=== PATIENT | female | born 1980 | race Caucasian/White ===

== ENCOUNTER 2017-01-28 17:23 | Inpatient (IN) | payer MEDICAID ==
[~2017-01-28] VITALS: Ht 167.6 cm; Wt 75.6 kg
[~2017-01-28 17:23] MED LIST: AMOX500T PO; CALC600T5 PO; FERR325C PO; FOLI0.8C PO; PREN1TAB62 PO
[2017-01-28] MEDS ORDERED: ONDANSETRON 4 MG INJ IV STA (19:16)
[2017-01-28] MEDS ORDERED: SOD CHLORIDE 0.9% 1,000 ML IV STA (19:16)
[2017-01-28] MEDS ORDERED: HYDROmorphONE 1 MG/ML SYG IV STA (19:16)
[2017-01-28 19:35] LABS: BASOPHILS % 0.4 % (0.0-2.0); EOSINOPHILS # 0.1 10^3/ul (0.0-0.5); EOSINOPHILS % 1.3 % (0.0-7.0); HEMATOCRIT 36.1 % (37.0-47.0); HEMOGLOBIN 11.8 g/dl (12.0-16.0); LYMPHOCYTES # 2.3 10^3/ul (0.8-2.9); LYMPHOCYTES % 23.3 % (15.0-51.0); MEAN CORPUSCULAR HEMOGLOBIN 27.5 pg (29.0-33.0); MEAN CORPUSCULAR HGB CONC 32.7 g/dl (32.0-37.0); MEAN CORPUSCULAR VOLUME 84.1 fl (82.0-101.0); MEAN PLATELET VOLUME 8.9 fl (7.4-10.4); MONOCYTE # 0.6 10^3/ul (0.3-0.9); MONOCYTES % 6.1 % (0.0-11.0); NEUTROPHIL # 6.7 10^3/ul (1.6-7.5); NEUTROPHILS % 68.4 % (39.0-77.0); PLATELET COUNT 399 10^3/UL (140-415); RED BLOOD COUNT 4.29 10^6/ul (4.20-5.40); RED CELL DISTRIBUTION WIDTH 13.6 % (11.5-14.5); WHITE BLOOD COUNT 9.8 10^3/ul (4.8-10.8)
[2017-01-28 19:42] LABS: ALBUMIN 4.2 g/dl (3.3-4.9); ALBUMIN/GLOBULIN RATIO 1.13; BILIRUBIN,INDIRECT 0.2 mg/dl (0-1.1); BILIRUBIN,TOTAL 0.2 mg/dl (0.2-1.3); CALCIUM 9.4 mg/dl (8.4-10.2); CREATININE 0.61 mg/dl (0.44-1.00); POTASSIUM 3.6 mmol/L (3.5-5.1); TOTAL PROTEIN 7.9 g/dl (6.1-8.1)
--- NOTE | 2017-01-28 20:36 | RADRPT ---
PROCEDURE: US right upper quadrant CLINICAL INDICATION: Abdominal pain TECHNIQUE: Multiple real-time images were acquired of the patient's right upper abdomen utilizing a high resolution transducer. COMPARISON: Ultrasound 06/15/2015 FINDINGS: Liver: Normal in size, contour and echogenicity. The maximum dimension estimated at 14.7 cm. No ma ss or ductal dilatation is present. There is normal blood flow within the patent main portal vein . Gallbladder: Multiple mobile echogenic foci with distal acoustic shadowing are present. . gallblad bigg wall thickening is present estimated at 4.1 mm. There is no evidence of pericholecystic fluid. N o sonographic Laird's sign is reported. Common bile duct: Dilated; 7.7 mm. There is no evidence for choledocholithiasis. Right Kidney: Normal; maximum length measured at approximately 11.1 cm. Pancreas: Visualized portions are normal. The tail is partially obscured by bowel gas. RPTAT:HJJR IMPRESSION: Cholelithiasis with interval development of gallbladder wall thickening and common bile duct dilatat ion compared to the prior study of 06/15/2015 unable to exclude cholecystitis despite the lack of re porting for a sonographic Laird's sign. Physician Mitesh Date Time Electronically viewed and signed by Physician Mitesh on 01/28/2017 20:36 JR/
--- NOTE | 2017-01-28 20:41 | RADRPT ---
PROCEDURE: US Pelvis. CLINICAL INDICATION: Pelvic and abdominal pain TECHNIQUE: Multiple sonographic images of the pelvis were obtained utilizing a transabdominal and endovaginal technique. The images were reviewed on a PACS workstation. COMPARISON: 01/25/2016 FINDINGS: Uterus: Normal in size, contour and echogenicity with no evidence for myometrial masses. Size is est imated at 8.6 x 6.3 x 6 cm. Cervix: No abnormalities of significance are seen. Endometrium: Ovoid anechoic structure believed to be a gestational sac is noted; 3.5 mm. This corre sponds to a gestational age of 5 weeks. No pole or yolk sac is visible however. Right ovary / adnexa: Normal in size estimated at 3.3 x 2.7 x 1.4 cm. No evidence for solid masses , normal blood flow on Doppler interrogation. Corpus luteum cyst of approximately 2.2 x 1.6 cm is no felipa Left ovary/adnexa: Size estimated at 3.3 x 1.4 x 2.7 cm (presumably incorrectly labeled on the image s as right ovary). Normal blood flow on Doppler interrogation. No evidence of adnexal mass or free f luid. Cul-de-sac: No evidence of free fluid. RPTAT:HJJR IMPRESSION: 1. Anechoic structure within the endometrial cavity probably a gestational sac corresponding to an a ge of 5 weeks but without pole or yolk sac. As viability is therefore indeterminate, follow-up evaluation with serial serum beta HCG correlation and ultrasound is recommended. 2. Incidental corpus luteum cyst of the right ovary. Physician Mitesh Date Time Electronically viewed and signed by Physician Mitesh on 01/28/2017 20:41 /
--- NOTE | 2017-01-28 22:43 | ERA ---
ER Documentation Chief Complaint Date/Time DATE: 01/28/17 TIME: 22:35 Chief Complaint RUQ PAIN, 5WKS lmp12/24/16, was seen @another hospital & left, HPI This is a 36-year-old female who states she is 4-5 weeks and left outside facility because they told her she had something wrong with her stomach and maybe she had gallstones. The told her that they were going to have to take the baby in order to perform surgery. The patient left for this reason because she did not want to have her baby taken away the expense of the surgery so they came here for evaluation. The patient states she has had pain in the right upper quadrant after eating for several months now and gotten worse. She says that the pain is crampy in the epigastric region and radiates to the back. She has nausea no vomiting no diarrhea no fever. She is no vaginal bleeding no pelvic pain ROS All systems reviewed and are negative except as per history of present illness. Medications Home Meds Reported Medications Amoxicillin Trihydrate (Amoxicillin) 500 Mg Tablet, 500 MG PO Q8, #30 TAB 01/25/16 Calcium Carbonate (CALCIUM) 600 Mg Tablet, 600 MG PO DAILY, TAB 01/25/16 Folic Acid (Folic Acid) 0.8 Mg Capsule, 0.8 MG PO DAILY, CAP 01/25/16 Ferrous Sulfate (Iron) 325 Mg Capsule.er, 325 MG PO DAILY, CAP 01/25/16 Vit-Iron Fumarate-FA ( Vitamin Tablet) 1 Each Tablet, 1 TAB PO DAILY, TAB 12/20/15 Allergies Allergies: Coded Allergies: No Known Drug Allergy (Verified Allergy, Unknown, 01/25/16) PMhx/Soc Medical and Surgical Hx: pt denies Medical Hx, pt denies Surgical Hx Hx Alcohol Use: No Hx Substance Use: No Hx Tobacco Use: No Smoking Status: Never smoker FmHx Family History: No coronary disease Physical Exam Vitals Vital Signs Date Time Temp Pulse Resp B/P Pulse Ox O2 Delivery O2 Flow Rate FiO2 01/28/17 19:37 66 15 125/71 100 Room Air 01/28/17 18:44 98.2 69 20 141/75 100 Room Air 01/28/17 17:27 98.2 85 20 121/66 100 Physical Exam Const: Well-developed, well-nourished Head: Atraumatic, normocephalic Eyes: Normal Conjunctiva, PERRLA, EOMI, normal sclera, no nystagmus ENT: Normal External Ears, Nose and Mouth, moist mucus membranes. Neck: Full range of motion. No meningismus, no lymphadenopathy. Resp: Clear to auscultation bilaterally, no wheezing, rhonchi, rales Cardio: Regular rate and rhythm, no murmurs, S1 S2 present Abd: Soft, moderate epigastric tenderness non distended. Normal bowel sounds, no guarding or rebound, no pulsitile abdominal masses or bruits Skin: No petechiae or rashes, no ecchymosis , no maculopapular rash Back: No midline or flank tenderness Ext: No cyanosis, or edema, FROM x 4, normal inspection, neurovascularly intact x 4 Neur: Awake and alert, STR 5/5 x 4, sensation intact x 4, no focal findings, cerebellum intact Psych: Normal Mood and Affect Result Diagram: 01/28/17185401/28/171854 Results 24 hrs Laboratory Tests Test 01/28/17 18:55 White Blood Count 9.810^3/ul Red Blood Count 4.2910^6/ul Hemoglobin 11.8g/dl Hematocrit 36.1% Mean Corpuscular Volume 84.1fl Mean Corpuscular Hemoglobin 27.5pg Mean Corpuscular Hemoglobin Concent 32.7g/dl Red Cell Distribution Width 13.6% Platelet Count 53137^3/UL Mean Platelet Volume 8.9fl Neutrophils % 68.4% Lymphocytes % 23.3% Monocytes % 6.1% Eosinophils % 1.3% Basophils % 0.4% Nucleated Red Blood Cells % 0.0/100WBC Neutrophils # 6.710^3/ul Lymphocytes # 2.310^3/ul Monocytes # 0.610^3/ul Eosinophils # 0.110^3/ul Basophils # 0.010^3/ul Nucleated Red Blood Cells # 0.010^3/ul Sodium Level 139mmol/L Potassium Level 3.6mmol/L Chloride Level 104mmol/L Carbon Dioxide Level 27mmol/L Anion Gap 12 Blood Urea Nitrogen 5mg/dl Creatinine 0.61mg/dl Glucose Level 92mg/dl Calcium Level 9.4mg/dl Total Bilirubin 0.2mg/dl Direct Bilirubin 0.00mg/dl Indirect Bilirubin 0.2mg/dl Aspartate Amino Transf (AST/SGOT) 266IU/L Alanine Aminotransferase (ALT/SGPT) 381IU/L Alkaline Phosphatase 277IU/L Total Protein 7.9g/dl Albumin 4.2g/dl Globulin 3.70g/dl Albumin/Globulin Ratio 1.13 Lipase 86U/L Beta HCG, Quantitative 1687.0mIU/ml Current Medications Medications (Trade) Dose Ordered Sig/Brisa Route PRN Reason Start Time Stop Time Status Last Admin Dose Admin Sodium Chloride (NS) 1,000 ml @ 1,000 mls/hr Q1H STAT IV 01/28/17 19:16 01/28/17 20:15 DC 01/28/17 19:26 Hydromorphone HCl (Dilaudid) 0.5 mg ONCE STAT IV 01/28/17 19:16 01/28/17 19:19 DC 01/28/17 19:27 Ondansetron HCl (Zofran Inj) 4 mg ONCE STAT IV 01/28/17 19:16 01/28/17 19:19 DC 01/28/17 19:27 Procedures/MDM PROCEDURE: US right upper quadrant CLINICAL INDICATION: Abdominal pain TECHNIQUE: Multiple real-time images were acquired of the patient's right upper abdomen utilizing a high resolution transducer. COMPARISON: Ultrasound 06/15/2015 FINDINGS: Liver: Normal in size, contour and echogenicity. The maximum dimension estimated at 14.7 cm. No mass or ductal dilatation is present. There is normal blood flow within the patent main portal vein . Gallbladder: Multiple mobile echogenic foci with distal acoustic shadowing are present. . gallbladder wall thickening is present estimated at 4.1 mm. There is no evidence of pericholecystic fluid. No sonographic Laird's sign is reported. Common bile duct: Dilated; 7.7 mm. There is no evidence for choledocholithiasis. Right Kidney: Normal; maximum length measured at approximately 11.1 cm. Pancreas: Visualized portions are normal. The tail is partially obscured by bowel gas. RPTAT:HJJR IMPRESSION: Cholelithiasis with interval development of gallbladder wall thickening and common bile duct dilatation compared to the prior study of 06/15/2015 unable to exclude cholecystitis despite the lack of reporting for a sonographic Laird's sign. Physician Mitesh Date Time Electronically viewed and signed by Physician Mitesh on 01/28/2017 20:36 / CC: CLARIBEL KEBEDE DO PROCEDURE: US Pelvis. CLINICAL INDICATION: Pelvic and abdominal pain TECHNIQUE: Multiple sonographic images of the pelvis were obtained utilizing a transabdominal and endovaginal technique. The images were reviewed on a PACS workstation. COMPARISON: 01/25/2016 FINDINGS: Uterus: Normal in size, contour and echogenicity with no evidence for myometrial masses. Size is estimated at 8.6 x 6.3 x 6 cm. Cervix: No abnormalities of significance are seen. Endometrium: Ovoid anechoic structure believed to be a gestational sac is noted ; 3.5 mm. This corresponds to a gestational age of 5 weeks. No pole or yolk sac is visible however. Right ovary / adnexa: Normal in size estimated at 3.3 x 2.7 x 1.4 cm. No evidence for solid masses, normal blood flow on Doppler interrogation. Corpus luteum cyst of approximately 2.2 x 1.6 cm is noted Left ovary/adnexa: Size estimated at 3.3 x 1.4 x 2.7 cm (presumably incorrectly labeled on the images as right ovary). Normal blood flow on Doppler interrogation. No evidence of adnexal mass or free fluid. Cul-de-sac: No evidence of free fluid. RPTAT:HJJR IMPRESSION: 1. Anechoic structure within the endometrial cavity probably a gestational sac corresponding to an age of 5 weeks but without pole or yolk sac. As viability is therefore indeterminate, follow-up evaluation with serial serum beta HCG correlation and ultrasound is recommended. 2. Incidental corpus luteum cyst of the right ovary. Physician Mitesh Date Time Electronically viewed and signed by Physician Mitesh on 01/28/2017 20:41 JR/ CC: CLARIBEL KEBEDE DO Patient has elevated liver function tests with thickened wall and common bile duct is dilated. She will be admitted for MRCP. I spoke with Dr. Phillips and I did speak with Dr. Rodriguez of surgery Departure Diagnosis: Primary Impression: Cholelithiasis Qualified Code: K80.01 - Calculus of gallbladder with acute cholecystitis and obstruction Additional Impression: Elevated liver function tests Condition: Stable CLARIBEL KEBEDE DO Jan 28, 2017 22:43
[2017-01-28] MEDS ORDERED: ERTAPENEM SODIUM 1 GM in SOD CHLORIDE 0.9% 100 ML IVPB ONE (23:00)
[2017-01-29] MEDS ORDERED: SOD CHLORIDE 0.9% 1,000 ML IV SCH
[2017-01-29] MEDS ORDERED: ACETAMINOPHEN 325 MG TAB PO PRN
[2017-01-29 00:44] VITALS: TEMP 98.2
[2017-01-29 01:20] VITALS: Ht 167.6 cm; Wt 75.6 kg
[2017-01-29 01:21] VITALS: BP 120/62; RESP 18
[2017-01-29] MEDS ORDERED: ONDANSETRON 4 MG INJ IV PRN ×2 (02:00)
[2017-01-29] MEDS: FAMOTIDINE 20 MG INJ IV SCH ×3 (02:41→21:13)
[2017-01-29] MEDS: DEXTROSE 5%-0.45% NACL 1,000 ML IV SCH ×3 (02:41→18:18)
--- NOTE | 2017-01-29 04:02 | HP ---
Date/Time of Note Date/Time of Note DATE: 01/29/17 TIME: 03:40 Assessment/Plan VTE Prophylaxis VTE Prophylaxis Intervention: SCD's Lines/Catheters IV Catheter Type (from Nrs): Peripheral IV Assessment/Plan Assessment/Plan 1. Cholelithiasis with probable choledocholithiasis in a pt who is 5 weeks - NPO with IVF - Abx - Awaiting surgical Eval. Note that pt left AMA from an outside hospital after she was told her baby has to be taken out before undergoing surgery 2. Elevated Transaminases/alk phos - see # 1 3. Anemia - check ferritin and iron profile 4. GERD, related to - PPI HPI/ROS Admit Date/Time Admit Date/Time Jan 29, 2017 at 00:01 Hx of Present Illness This is a 36-year-old female who states she is 5 weeks presented to ER c/o abd pain of several months duration. Patient was just admitted at an outside hospital and was told she has Gallstones and that she needs a surgery. She left AMA after she was told the baby has to be taken out in order to perform surgery. MRCP was performed at outside hospital and that is the only record she came with. She also c/o GERD like symptom during her . Reported nausea. Denied chest pain, SOB, fever or chills. In ER, RUQ u/s showed Cholelithiasis with interval development of gallbladder wall thickening and common bile duct dilatation compared to the prior study of 06/15/2015 unable to exclude cholecystitis despite the lack of reporting for a sonographic Laird's sign. Lab shows AST 266, ALT 381, AP 277 and hgb of 11.8. . PMH/Family/Social Past Medical History GERD, related . Social History Smoking Status: Never smoker Exam/Review of Systems Vital Signs Vitals Vital Signs Date Time Temp Pulse Resp B/P Pulse Ox O2 Delivery O2 Flow Rate FiO2 01/29/17 01:21 97.6 68 18 120/62 100 01/29/17 00:44 Room Air Exam Constitutional: alert, oriented, well developed Head: atraumatic, normocephalic Eyes: EOMI, PERRL Respiratory: clear to auscultation, normal air movement Cardiovascular: nl pulses, regular rate and rhythm Gastrointestinal: soft, tender Extremities: normal pulses Labs Result Diagram: 01/28/17 1855 01/28/17 1855 Medications Medications Current Medications Sodium Chloride (NS) 1,000 ml @ 80 mls/hr [id number] IV ; Start 01/29/17 at 00:00 ; Stop 01/29/17 at 12:29 Famotidine (Pepcid Iv) 20 mg BID IV Last administered on 01/29/17 02:41; Admin Dose 20 MG; Start 01/29/17 at 02:00 Morphine Sulfate (morphine) 3 mg Q4H PRN IV PAIN; Start 01/29/17 at 02:00 Ondansetron HCl 4 mg 4 mg Q6H PRN IV NAUSEA AND/OR VOMITING; Start 01/29/17 at 02:00 Dextrose/Sodium Chloride (D5-1/2ns) 1,000 ml @ 100 mls/hr Q10H IV Last administered on 01/29/17 02:41; Admin Dose 100 MLS/HR; Start 01/29/17 at 02:00 BRI BELLO MD Jan 29, 2017 03:55
[2017-01-29 07:33] LABS: BASOPHILS % 0.5 % (0.0-2.0); EOSINOPHILS # 0.2 10^3/ul (0.0-0.5); EOSINOPHILS % 2.5 % (0.0-7.0); HEMATOCRIT 33.7 % (37.0-47.0); HEMOGLOBIN 10.7 g/dl (12.0-16.0); LYMPHOCYTES % 27.1 % (15.0-51.0); MEAN CORPUSCULAR HEMOGLOBIN 26.4 pg (29.0-33.0); MEAN CORPUSCULAR HGB CONC 31.8 g/dl (32.0-37.0); MONOCYTE # 0.5 10^3/ul (0.3-0.9); MONOCYTES % 6.1 % (0.0-11.0); NEUTROPHIL # 4.8 10^3/ul (1.6-7.5); NEUTROPHILS % 63.4 % (39.0-77.0); PLATELET COUNT 329 10^3/UL (140-415); RED BLOOD COUNT 4.06 10^6/ul (4.20-5.40); RED CELL DISTRIBUTION WIDTH 13.7 % (11.5-14.5); WHITE BLOOD COUNT 7.5 10^3/ul (4.8-10.8)
[2017-01-29 07:34] VITALS: BP 117/58; RESP 18
[2017-01-29 08:04] LABS: ALBUMIN 3.6 g/dl (3.3-4.9); ALBUMIN/GLOBULIN RATIO 1.12; BILIRUBIN,INDIRECT 0.1 mg/dl (0-1.1); BILIRUBIN,TOTAL 0.1 mg/dl (0.2-1.3); CALCIUM 8.5 mg/dl (8.4-10.2); CREATININE 0.58 mg/dl (0.44-1.00); POTASSIUM 3.6 mmol/L (3.5-5.1); TOTAL PROTEIN 6.8 g/dl (6.1-8.1)
[2017-01-29] MEDS: PIPER-TAZO 2.25 GM (PMX) 50 ML IVPB SCH ×3 (09:17→18:18)
[2017-01-29 09:24] LABS: FERRITIN 34.2 ng/ml (6.2-137.0)
[2017-01-29] MEDS: morphine 4 MG/ML VIAL IV PRN ×2 (11:33→19:54)
--- NOTE | 2017-01-29 11:51 | PN ---
Date/Time of Note Date/Time of Note DATE: 01/29/17 TIME: 11:48 Assessment/Plan VTE Prophylaxis VTE Prophylaxis Intervention: SCD's Lines/Catheters IV [facility] Type (from [facility] Peripheral IV Assessment/Plan Chief Complaint/Hosp Course Assessment/Plan 1. Cholelithiasis with probable choledocholithiasis in a pt who is 5 weeks - NPO with IVF - Abx - Awaiting surgical and GI Eval. Note that pt left AMA from an outside hospital after she was told her baby has to be taken out before undergoing surgery -MRCP 2. Elevated Transaminases/alk phos - see # 1 3. Anemia - check ferritin and iron profile 4. GERD, related to - PPI Continue monitor patient closely for recommendation management treatments medical course DVT prophylaxis and SCD Problems: Subjective 24 Hr Interval Summary Free Text/Dictation Patient continues to complain of abdominal pain N.p.o. secondary to abdominal pain and upcoming procedure According to patient she has had an MRCP at [facility] (waiting to obtain the result) Denies of any chest pain or shortness of breath Exam/Review of Systems Vital Signs Vitals Vital Signs Date Time Temp Pulse Resp B/P Pulse Ox O2 Delivery O2 Flow Rate FiO2 01/29/17 07:34 98.0 71 18 117/58 99 01/29/17 00:44 Room Air Intake and Output 01/28/17 01/28/17 01/29/17 15:00 23:00 07:00 Intake Total 350 ml Balance 350 ml Exam General: The patient is well-developed, Not in acute distress. HEENT: Atraumatic, normocephalic. The pupils are equal and round . Neck: Supple with full range of motion. Chest: Normal expansion of the thorax during inspiration Lungs: Clear to auscultation bilaterally Heart: Normal S1-S2, Regular rhythm and rate. Abdomen: Soft , mildly tender at epigastric region , nondistended , bowel sounds are present. Extremities: Normal to inspection, no edema no cyanosis Neurologic: Normal mental status,The patient is awake, alert and oriented . Results Result Diagram: 01/29/17 0656 01/29/17 0656 Results 24 hrs Laboratory Tests Test 01/28/17 18:55 01/29/17 06:56 White Blood Count 9.8 7.5 # Red Blood Count 4.29 4.06 L Hemoglobin 11.8 L 10.7 L Hematocrit 36.1 L 33.7 L Mean Corpuscular Volume 84.1 83.0 Mean Corpuscular Hemoglobin 27.5 L 26.4 L Mean Corpuscular Hemoglobin Concent 32.7 31.8 L Red Cell Distribution Width 13.6 13.7 Platelet Count 399 329 Mean Platelet Volume 8.9 # 9.0 Neutrophils % 68.4 63.4 Lymphocytes % 23.3 27.1 Monocytes % 6.1 6.1 Eosinophils % 1.3 2.5 Basophils % 0.4 0.5 Nucleated Red Blood Cells % 0.0 0.0 Neutrophils # 6.7 4.8 Lymphocytes # 2.3 2.0 Monocytes # 0.6 0.5 Eosinophils # 0.1 0.2 Basophils # 0.0 0.0 Nucleated Red Blood Cells # 0.0 0.0 Sodium Level 139 138 Potassium Level 3.6 3.6 Chloride Level 104 106 Carbon Dioxide Level 27 25 Anion Gap 12 11 Blood Urea Nitrogen 5 L 4 L Creatinine 0.61 0.58 Glucose Level 92 98 Calcium Level 9.4 8.5 Total Bilirubin 0.2 0.1 L Direct Bilirubin 0.00 0.00 Indirect Bilirubin 0.2 0.1 Aspartate Amino Transf (AST/SGOT) 266 H 153 H Alanine Aminotransferase (ALT/SGPT) 381 H 284 H Alkaline Phosphatase 277 H 224 H Total Protein 7.9 6.8 # Albumin 4.2 3.6 Globulin 3.70 H 3.20 Albumin/Globulin Ratio 1.13 1.12 Lipase 86 Beta HCG, Quantitative 1687.0 Ferritin 34.2 Medications Medications Current Medications Sodium Chloride (NS) 1,000 ml @ 80 mls/hr [id number] IV ; Start 01/29/17 at 00:00 ; Stop 01/29/17 at 12:29 Famotidine (Pepcid Iv) 20 mg BID IV Last administered on 01/29/17 08:47; Admin Dose 20 MG; Start 01/29/17 at 02:00 Morphine Sulfate (morphine) 3 mg Q4H PRN IV PAIN Last administered on 11:33; Admin Dose 3 MG; Start 01/29/17 at 02:00 Ondansetron HCl 4 mg 4 mg Q6H PRN IV NAUSEA AND/OR VOMITING; Start 01/29/17 at 02:00 Dextrose/Sodium Chloride 1,000 ml @ 100 mls/hr Q10H IV Last administered on 02:41; Admin Dose 100 MLS/HR; Start 01/29/17 at 02:00 Piperacillin Sod/ Tazobactam Sod (Zosyn 2.25gm/ 50ml (Pmx)) 50 ml @ 100 mls/hr Q6 IVPB Last administered on 01/29/17 11:33; Admin Dose 100 MLS/HR; Start at 08:30 CHARLIE BERGMAN MD Jan 29, 2017 11:51
--- NOTE | 2017-01-29 15:32 | CONS ---
Date/Time of Note Date/Time of Note DATE: 01/29/17 TIME: 14:56 Assessment/Plan Assessment/Plan Chief Complaint/Hosp Course 1. Cholelithiasis with poss choledocholithiasis : no fevers, negative murphys; + transaminitis; dilated cbd; pain improving -mrcp pending -npo -ivf -GI eval poss ercp -eventual lap suzette 2. Transaminitis: 2/2 above; improving -as above 3. Abdominal pain: improved -pain management 4. Anemia: no femi bleed noted -monitor and transfuse prn 5. GERD: -ppi Patient seen and examined in collaboration with Dr. Aramis Rodriguez. Thank you. Problems: Consultation Date/Type/Reason Admit Date/Time Jan 29, 2017 at 00:01 Date of Consultation: Jan 29, 2017 Type of Consultation: surgical Reason for Consultation cholelithiasis Referring Provider: BRI BELLO MD Hx of Present Illness Libra Pires is a 36-year-old woman who is 5 weeks , who presented to ER c/o abd pain of several months duration. She recently left AMA after she was told the baby has to be taken out in order to perform the recommended cholecystectomy. MRCP was performed at outside hospital which we are attempting to obtain. She complains of RUQ pain intermittently irrespective of food. She also c/o GERD like symptom as well as intermittent nausea during her . She denies chest pain, SOB, fever or chills. US of gallbladder shows cholelithiasis with interval development of gallbladder wall thickening and common bile duct dilatation compared to the prior study of 06/15/2015. General surgery was called to evaluate. Constitutional: No chills, No febrile Eyes: No visual change ENT: No congestion Respiratory: No cough, No shortness of breath Cardiovascular: No chest pain, No edema, No lightheadedness Gastrointestinal: No diarrhea, No nausea, No pain, No vomiting Genitourinary: No dysuria, No hematuria Musculoskeletal: No back pain Skin: No bruising, No erythema Neurologic: No dizziness, No headache Endocrine: No polyuria Psychological: nl mood/affect Past Medical History Medical History: GERD Past Surgical History Past Surgical Hx: no surgical history Family History Significant Family History: no pertinent family hx Social History Alcohol Use: none Smoking Status: Never smoker Drug Use: none Exam/Review of Systems Vital Signs Vitals Vital Signs Date Time Temp Pulse Resp B/P Pulse Ox O2 Delivery O2 Flow Rate FiO2 01/29/17 07:34 98.0 71 18 117/58 99 01/29/17 00:44 Room Air Intake and Output 01/28/17 01/28/17 01/29/17 15:00 23:00 07:00 Intake Total 350 ml Balance 350 ml Exam Constitutional: alert, oriented Psych: anxiety Head: atraumatic, normocephalic Eyes: nl lids, nl sclera ENMT: mucosa pink and moist, nl nasal mucosa & septum Neck: non-tender, supple, No jvd Respiratory: normal air movement Cardiovascular: nl pulses, regular rate and rhythm, No edema Gastrointestinal: non-tender, other (negative hall's; rotund), soft Genitourinary - Female: nl external genitalia Musculoskeletal: nl extremities to inspection Extremities: normal pulses, No edema Neurological: nl mental status, nl speech, nl strength Skin: No rash or lesions Lymph: nl lymph nodes Results Result Diagram: 01/29/17 0656 01/29/17 0656 Results 24 hrs Laboratory Tests Test 01/28/17 18:55 01/29/17 06:56 White Blood Count 9.8 7.5 # Red Blood Count 4.29 4.06 L Hemoglobin 11.8 L 10.7 L Hematocrit 36.1 L 33.7 L Mean Corpuscular Volume 84.1 83.0 Mean Corpuscular Hemoglobin 27.5 L 26.4 L Mean Corpuscular Hemoglobin Concent 32.7 31.8 L Red Cell Distribution Width 13.6 13.7 Platelet Count 399 329 Mean Platelet Volume 8.9 # 9.0 Neutrophils % 68.4 63.4 Lymphocytes % 23.3 27.1 Monocytes % 6.1 6.1 Eosinophils % 1.3 2.5 Basophils % 0.4 0.5 Nucleated Red Blood Cells % 0.0 0.0 Neutrophils # 6.7 4.8 Lymphocytes # 2.3 2.0 Monocytes # 0.6 0.5 Eosinophils # 0.1 0.2 Basophils # 0.0 0.0 Nucleated Red Blood Cells # 0.0 0.0 Sodium Level 139 138 Potassium Level 3.6 3.6 Chloride Level 104 106 Carbon Dioxide Level 27 25 Anion Gap 12 11 Blood Urea Nitrogen 5 L 4 L Creatinine 0.61 0.58 Glucose Level 92 98 Calcium Level 9.4 8.5 Total Bilirubin 0.2 0.1 L Direct Bilirubin 0.00 0.00 Indirect Bilirubin 0.2 0.1 Aspartate Amino Transf (AST/SGOT) 266 H 153 H Alanine Aminotransferase (ALT/SGPT) 381 H 284 H Alkaline Phosphatase 277 H 224 H Total Protein 7.9 6.8 # Albumin 4.2 3.6 Globulin 3.70 H 3.20 Albumin/Globulin Ratio 1.13 1.12 Lipase 86 Beta HCG, Quantitative 1687.0 Ferritin 34.2 Medications Medications Current Medications Famotidine (Pepcid Iv) 20 mg BID IV Last administered on 01/29/17 08:47; Admin Dose 20 MG; Start 01/29/17 at 02:00 Morphine Sulfate (morphine) 3 mg Q4H PRN IV PAIN Last administered on 11:33; Admin Dose 3 MG; Start 01/29/17 at 02:00 Ondansetron HCl 4 mg 4 mg Q6H PRN IV NAUSEA AND/OR VOMITING; Start 01/29/17 at 02:00 Dextrose/Sodium Chloride 1,000 ml @ 100 mls/hr Q10H IV Last administered on 02:41; Admin Dose 100 MLS/HR; Start 01/29/17 at 02:00 Piperacillin Sod/ Tazobactam Sod (Zosyn 2.25gm/ 50ml (Pmx)) 50 ml @ 100 mls/hr Q6 IVPB Last administered on 01/29/17 11:33; Admin Dose 100 MLS/HR; Start at 08:30 MATEO YARBROUGH NP Jan 29, 2017 15:17
--- NOTE | 2017-01-29 18:53 | CONS ---
Date/Time of Note Date/Time of Note DATE: 01/29/17 TIME: 18:47 Assessment/Plan Assessment/Plan Additional Assessment/Plan Assessment: * Cholelithiasis/rule out cholecystitis * Rule out choledocholithiasis * 5 weeks intrauterine Plan: * Obtain MRCP from [place] or repeat MRCP * If choledocholithiasis is present consider limited ERCP for stenting biliary tree, a metal stent will be required given the length of time of protection required * She has been informed of the potential need for this procedure including risks , benefits and alternatives she is agreeable to proceed if this becomes necessary Consultation Date/Type/Reason Admit Date/Time Jan 29, 2017 at 00:01 Date of Consultation: Jan 29, 2017 Type of Consultation: GI Reason for Consultation Rule out choledocholithiasis Hx of Present Illness 36-year-old female with a 5 week intrauterine , signout AMA from [facility] and presented herself to the emergency room complaining of epigastric abdominal pain. She has been found to have cholelithiasis, dilatation of the biliary tree which appears to be relatively new and slight abnormality liver function tests. Apparently when she was at [place] and MRCP was obtained that showed stones outside of the gallbladder, the patient was offered initial ERCP and subsequently surgery and at some point in time she decided to leave the hospital AGAINST MEDICAL ADVICE. At this point information is not corroborated and she is awaiting repeat MRCP to determine the possibility of choledocholithiasis. If choledocholithiasis is present the patient will required intervention to prevent the possibility of obstruction and cholangitis. The patient has been informed of the possibility of performing ERCP for the purpose of placing a stent to maintain biliary patency until her delivery at which time she will require removal of stent in completion of clearance of biliary tree. She appears to understand the issues and is agreeable to proceed if necessary pending review of MRCP Constitutional: No chills, No febrile Eyes: No visual change ENT: No congestion Respiratory: No cough, No shortness of breath Cardiovascular: No chest pain, No edema, No lightheadedness Gastrointestinal: No diarrhea, No nausea, No pain, No vomiting Genitourinary: No dysuria, No hematuria Musculoskeletal: No back pain Skin: No bruising, No erythema Neurologic: No dizziness, No headache Endocrine: other (Primary amenorrhea), No polyuria Lymphatic: no complaints Psychological: anxiety Immunologic: no complaints Past Medical History 5 week intrauterine Cholelithiasis Medical History: GERD Past Surgical History Past Surgical Hx: no surgical history Social History Alcohol Use: none Smoking Status: Never smoker Drug Use: none Exam/Review of Systems Vital Signs Vitals Vital Signs Date Time Temp Pulse Resp B/P Pulse Ox O2 Delivery O2 Flow Rate FiO2 01/29/17 07:34 98.0 71 18 117/58 99 01/29/17 00:44 Room Air Intake and Output 01/28/17 01/28/17 01/29/17 15:00 23:00 07:00 Intake Total 350 ml Balance 350 ml Exam PHYSICAL EXAMINATION: GENERAL: Well developed, well nourished, alert & oriented x 3, in no acute distress SKIN: No lesions, no stigmata chronic liver disease, no evidence of bleeding diathesis LYMPHATIC: No palpable lymphadenopathy. HEAD: Normocephalic, atraumatic, no tenderness. EYES: Pupils equal reactive to light and accommodation, full extraocular movements, sclera clear, non-icteric, no discharge. EARS/NOSE AND THROAT: Ears normal, nose normal, oropharynx normal, oral membranes well hydrated without lesions. NECK: Supple, no masses, thyroid normal, JVP within normal limits, carotids normal without bruits. CHEST: Inspection within normal limits, breasts grossly normal. CARDIOVASCULAR: Heart: Regular rate and rhythm, no murmurs, gallops or rubs. Peripheral pulses present within normal limits, no cyanosis, clubbing or edemas. No pulsatile abdominal mass RESPIRATORY: Lungs clear to auscultation and percussion, no wheezing, no rubs GASTROINTESTINAL AND LIVER: Abdomen: Soft, moderate epigastric and right upper quadrant tenderness, no clear Laird sign, non-distended, no hernias, no masses , no organomegaly, no ascites, no guarding, no rebound tenderness, normoactive bowel sounds. Rectal: Deferred. GENITOURINARY: [Female genitalia within normal limits.] MUSCULO-SKELETAL: Gait and station within normal limits, range of motion adequate. [NEUROLOGIC: Cranial nerves II-XII intact, Motor within normal limits, Sensory within normal limits. Reflexes within normal limits. PSYCHIATRIC: Alert & oriented x 3, mood/affect/judgement adequate] Results Result Diagram: 01/29/17 0656 01/29/17 0656 Results 24 hrs Laboratory Tests Test 01/28/17 18:55 01/29/17 06:56 White Blood Count 9.8 7.5 # Red Blood Count 4.29 4.06 L Hemoglobin 11.8 L 10.7 L Hematocrit 36.1 L 33.7 L Mean Corpuscular Volume 84.1 83.0 Mean Corpuscular Hemoglobin 27.5 L 26.4 L Mean Corpuscular Hemoglobin Concent 32.7 31.8 L Red Cell Distribution Width 13.6 13.7 Platelet Count 399 329 Mean Platelet Volume 8.9 # 9.0 Neutrophils % 68.4 63.4 Lymphocytes % 23.3 27.1 Monocytes % 6.1 6.1 Eosinophils % 1.3 2.5 Basophils % 0.4 0.5 Nucleated Red Blood Cells % 0.0 0.0 Neutrophils # 6.7 4.8 Lymphocytes # 2.3 2.0 Monocytes # 0.6 0.5 Eosinophils # 0.1 0.2 Basophils # 0.0 0.0 Nucleated Red Blood Cells # 0.0 0.0 Sodium Level 139 138 Potassium Level 3.6 3.6 Chloride Level 104 106 Carbon Dioxide Level 27 25 Anion Gap 12 11 Blood Urea Nitrogen 5 L 4 L Creatinine 0.61 0.58 Glucose Level 92 98 Calcium Level 9.4 8.5 Total Bilirubin 0.2 0.1 L Direct Bilirubin 0.00 0.00 Indirect Bilirubin 0.2 0.1 Aspartate Amino Transf (AST/SGOT) 266 H 153 H Alanine Aminotransferase (ALT/SGPT) 381 H 284 H Alkaline Phosphatase 277 H 224 H Total Protein 7.9 6.8 # Albumin 4.2 3.6 Globulin 3.70 H 3.20 Albumin/Globulin Ratio 1.13 1.12 Lipase 86 Beta HCG, Quantitative 1687.0 Ferritin 34.2 Medications Medications Current Medications Famotidine (Pepcid Iv) 20 mg BID IV Last administered on 01/29/17 08:47; Admin Dose 20 MG; Start 01/29/17 at 02:00 Morphine Sulfate (morphine) 3 mg Q4H PRN IV PAIN Last administered on 11:33; Admin Dose 3 MG; Start 01/29/17 at 02:00 Ondansetron HCl 4 mg 4 mg Q6H PRN IV NAUSEA AND/OR VOMITING; Start 01/29/17 at 02:00 Dextrose/Sodium Chloride 1,000 ml @ 100 mls/hr Q10H IV Last administered on 18:18; Admin Dose 100 MLS/HR; Start 01/29/17 at 02:00 Piperacillin Sod/ Tazobactam Sod (Zosyn 2.25gm/ 50ml (Pmx)) 50 ml @ 100 mls/hr Q6 IVPB Last administered on 01/29/17 18:18; Admin Dose 100 MLS/HR; Start at 08:30 OK NGUYEN MD Jan 29, 2017 18:53
[2017-01-29 19:31] VITALS: BP 113/59; RESP 18
[2017-01-30] VITALS (17 sets, daily range): BP systolic 96–147; BP diastolic 51–97; PULSE 61–76; RESP 16–21
[2017-01-30] MEDS: PIPER-TAZO 2.25 GM (PMX) 50 ML IVPB SCH ×4 (00:12→20:11)
--- NOTE | 2017-01-30 00:15 | RADRPT ---
PROCEDURE: MRCP. CLINICAL INDICATION: 36 years of age, female. Abdominal pain. Gallstones. TECHNIQUE: An MRCP was performed without intravenous contrast. Axial and coronal T2, axial T2 with fat saturation, and coronal T2 3D RST images were obtained. 3-D coronal rotating MIP images of the biliary tree were also generated. COMPARISON: Abdominal ultrasound January 28, 2017 FINDINGS: Gall Bladder: There are multiple stones layering dependently in the gallbladder. Gallbladder is mild ly distended. There is mild gallbladder wall thickening measuring 0.5 cm with mild gallbladder wall edema. There is minimal edema in the pericholecystic fat. Bile ducts: Mild intrahepatic biliary duct dilatation. Left intrahepatic bile ducts measure 0.5 cm. Common bile duct is mildly dilated and measures 0.7 cm. There is a 0.5 cm filling defect in the intr apancreatic segment of the common bile duct within 1 cm of the ampulla in keeping with a common duct stone Pancreatic duct: Pancreatic duct is normal in caliber and configuration. Negative for divisum. Pancreas: Normal noncontrast appearance on T2-weighted imaging. Limited imaging of the lung bases, liver, spleen, adrenal glands, kidneys, aorta and IVC and bowel i s unremarkable. No enlarged lymph nodes are identified. Trace free pelvic fluid. Abdominal wall and bones are unremarkable. IMPRESSION: 0.5 cm common duct stone with biliary obstruction and mild upstream dilatation of the intrahepatic a nd extrahepatic bile ducts. Cholelithiasis. Gallbladder wall thickening with mild gallbladder wall edema may indicate acute chol ecystitis. Recommend clinical correlation. RPTAT: HCTS Physician Tony Date Time Electronically viewed and signed by Physician Tony on 01/30/2017 00:14 /
[2017-01-30] MEDS: morphine 4 MG/ML VIAL IV PRN ×2 (04:40→22:59)
[2017-01-30] MEDS: DEXTROSE 5%-0.45% NACL 1,000 ML IV SCH ×2 (06:01→20:11)
[2017-01-30 06:27] LABS: BASOPHILS % 0.6 % (0.0-2.0); EOSINOPHILS # 0.2 10^3/ul (0.0-0.5); EOSINOPHILS % 3.5 % (0.0-7.0); HEMOGLOBIN 10.7 g/dl (12.0-16.0); LYMPHOCYTES # 2.2 10^3/ul (0.8-2.9); MEAN CORPUSCULAR HEMOGLOBIN 27.2 pg (29.0-33.0); MEAN CORPUSCULAR HGB CONC 32.4 g/dl (32.0-37.0); MEAN CORPUSCULAR VOLUME 83.8 fl (82.0-101.0); MEAN PLATELET VOLUME 8.9 fl (7.4-10.4); MONOCYTE # 0.5 10^3/ul (0.3-0.9); MONOCYTES % 8.6 % (0.0-11.0); NEUTROPHIL # 3.3 10^3/ul (1.6-7.5); PLATELET COUNT 335 10^3/UL (140-415); RED BLOOD COUNT 3.94 10^6/ul (4.20-5.40); RED CELL DISTRIBUTION WIDTH 13.6 % (11.5-14.5); WHITE BLOOD COUNT 6.3 10^3/ul (4.8-10.8)
[2017-01-30 06:47] LABS: IRON 46 ug/dl (35-150)
[2017-01-30 06:56] LABS: TOTAL IRON BINDING CAPACITY 348 ug/dl (241-421)
[2017-01-30 07:05] LABS: ALBUMIN 3.3 g/dl (3.3-4.9); ALBUMIN/GLOBULIN RATIO 1.06; BILIRUBIN,INDIRECT 0.2 mg/dl (0-1.1); BILIRUBIN,TOTAL 0.2 mg/dl (0.2-1.3); CALCIUM 8.4 mg/dl (8.4-10.2); CREATININE 0.59 mg/dl (0.44-1.00); MAGNESIUM 1.7 mg/dl (1.7-2.5); POTASSIUM 3.3 mmol/L (3.5-5.1); TOTAL PROTEIN 6.4 g/dl (6.1-8.1)
[2017-01-30] MEDS ORDERED: INDOMETHACIN 50 MG SUPP PR ONE (08:30)
[2017-01-30] MEDS: FAMOTIDINE 20 MG INJ IV SCH ×2 (10:07→20:11)
--- NOTE | 2017-01-30 13:27 | PN ---
Date/Time of Note Date/Time of Note DATE: 01/30/17 TIME: 13:18 Assessment/Plan Lines/Catheters IV Catheter Type (from [facility]): Peripheral IV Assessment/Plan Chief Complaint/Hosp Course 1. Cholelithiasis with choledocholithiasis: no fevers, negative murphys; + transaminitis; dilated cbd; pain improving; MRCP: cbd stone -npo -ivf -GI for poss ercp with stent -eventual lap suzette 2. Transaminitis: 2/2 above; increasing 2/2 #1 -as above 3. Abdominal pain: improved -pain management 4. Anemia: no femi bleed noted -monitor and transfuse prn 5. GERD: asymptomatic currently -ppi Patient seen and examined in collaboration with Dr. Aramis Rodriguez. Thank you. Problems: Subjective 24 Hr Interval Summary MRCP: +stone in CBD. Feels well. No c/o abdominal pain/discomfort. Continues to be npo. No fevers, chills, sob, congested cough, abdominal distention, cp, palpitation, friend, dizziness, sz, rash. Exam/Review of Systems Vital Signs Vitals Vital Signs Date Time Temp Pulse Resp B/P Pulse Ox O2 Delivery O2 Flow Rate FiO2 01/30/17 07:31 97.3 65 16 96/51 99 01/29/17 00:44 Room Air Intake and Output 01/29/17 01/29/17 01/30/17 15:00 23:00 07:00 Intake Total 50 ml 750 ml 1100 ml Balance 50 ml 750 ml 1100 ml Exam Free Text/Dictation Constitutional: alert, oriented Psych: nl Head: atraumatic, normocephalic Eyes: nl lids, nl sclera ENMT: mucosa pink and moist, nl nasal mucosa & septum Neck: non-tender, supple, No jvd Respiratory: normal air movement Cardiovascular: nl pulses, regular rate and rhythm, No edema Gastrointestinal: non-tender, other (negative hall's; rotund), soft Genitourinary - Female: nl external genitalia Musculoskeletal: nl extremities to inspection Extremities: normal pulses, No edema Neurological: nl mental status, nl speech, nl strength Skin: No rash or lesions Lymph: nl lymph nodes Results Result Diagram: 01/30/17 0542 01/30/17 0542 MATEO YARBROUGH NP Jan 30, 2017 13:27
--- NOTE | 2017-01-30 13:27 | PN ---
Date/Time of Note Date/Time of Note DATE: 01/30/17 TIME: 13:22 Assessment/Plan VTE Prophylaxis VTE Prophylaxis Intervention: SCD's Lines/Catheters IV [facility] Type [facility]from [facility]): Peripheral IV Assessment/Plan Chief Complaint/Hosp Course Assessment/Plan 1. Cholelithiasis with probable choledocholithiasis in a pt who is 5 weeks - NPO with IVF - Abx - Note that pt left AMA from an outside hospital after she was told her baby has to be taken out before undergoing surgery -MRCP positive for choledocholithiasis -General surgery and optometry professor had consulted -Plan for ERCP today -Follow-up general surgery recommendations for possible cholecystectomy post ERCP 2. Elevated Transaminases/alk phos -Likely secondary to #1 , continue to monitor 3. Iron deficiency anemia -Stable -Follow up with BUSINESS TRAVEL CONSULTANT as outpatient 4. GERD, related to - PPI Continue monitor patient closely for recommendation management treatments medical course DVT prophylaxis and SCD Problems: Subjective 24 Hr Interval Summary Free Text/Dictation Patient denies of any chest pain or shortness of breath She does complain of having minimal abdominal discomfort in epigastric region N.p.o. No nausea or vomiting Exam/Review of Systems Vital Signs Vitals Vital Signs Date Time Temp Pulse Resp B/P Pulse Ox O2 Delivery O2 Flow Rate FiO2 01/30/17 07:31 97.3 65 16 96/51 99 01/29/17 00:44 Room Air Intake and Output 01/29/17 01/29/17 01/30/17 15:00 23:00 07:00 Intake Total 50 ml 750 ml 1100 ml Balance 50 ml 750 ml 1100 ml Exam General: The patient is well-developed, Not in acute distress. HEENT: Atraumatic, normocephalic. The pupils are equal and round . Neck: Supple with full range of motion. Chest: Normal expansion of the thorax during inspiration Lungs: Clear to auscultation bilaterally Heart: Normal S1-S2, Regular rhythm and rate. Abdomen: Soft , nontender, nondistended , bowel sounds are present. Extremities: Normal to inspection, no edema no cyanosis Neurologic: Normal mental status,The patient is awake, alert and oriented . Results Result Diagram: 01/30/17 0542 01/30/17 0542 Results 24 hrs Laboratory Tests Test 01/30/17 05:42 White Blood Count 6.3 Red Blood Count 3.94 L Hemoglobin 10.7 L Hematocrit 33.0 L Mean Corpuscular Volume 83.8 Mean Corpuscular Hemoglobin 27.2 L Mean Corpuscular Hemoglobin Concent 32.4 Red Cell Distribution Width 13.6 Platelet Count 335 Mean Platelet Volume 8.9 Neutrophils % 52.0 Lymphocytes % 35.0 Monocytes % 8.6 Eosinophils % 3.5 Basophils % 0.6 Nucleated Red Blood Cells % 0.0 Neutrophils # 3.3 Lymphocytes # 2.2 Monocytes # 0.5 Eosinophils # 0.2 Basophils # 0.0 Nucleated Red Blood Cells # 0.0 Sodium Level 135 Potassium Level 3.3 L Chloride Level 103 Carbon Dioxide Level 26 Anion Gap 9 Blood Urea Nitrogen 4 L Creatinine 0.59 Glucose Level 118 Calcium Level 8.4 Magnesium Level 1.7 Iron Level 46 Total Iron Binding Capacity 348 Percent Iron Saturation 13 L Total Bilirubin 0.2 Direct Bilirubin 0.00 Indirect Bilirubin 0.2 Aspartate Amino Transf (AST/SGOT) 227 H Alanine Aminotransferase (ALT/SGPT) 306 H Alkaline Phosphatase 269 H Total Protein 6.4 Albumin 3.3 Globulin 3.10 Albumin/Globulin Ratio 1.06 Lipase 55 Medications Medications Current Medications Famotidine (Pepcid Iv) 20 mg BID IV Last administered on 01/30/17 10:07; Admin Dose 20 MG; Start 01/29/17 at 02:00 Morphine Sulfate (morphine) 3 mg Q4H PRN IV PAIN Last administered on 04:40; Admin Dose 3 MG; Start 01/29/17 at 02:00 Ondansetron HCl 4 mg 4 mg Q6H PRN IV NAUSEA AND/OR VOMITING; Start 01/29/17 at 02:00 Dextrose/Sodium Chloride 1,000 ml @ 100 mls/hr Q10H IV Last administered on 06:01; Admin Dose 100 MLS/HR; Start 01/29/17 at 02:00 Piperacillin Sod/ Tazobactam Sod (Zosyn 2.25gm/ 50ml (Pmx)) 50 ml @ 100 mls/hr Q6 IVPB Last administered on 01/30/17 13:07; Admin Dose 100 MLS/HR; Start at 08:30 CHARLIE BERGMAN MD Jan 30, 2017 13:27
[2017-01-30] MEDS ORDERED: IOHEXOL 300MG/ML 30 ML BTL ONE (16:40)
[2017-01-30] MEDS ORDERED: FENTAnyl 50 MCG/ML VIAL ONE (17:49)
[2017-01-30] MEDS ORDERED: PHENYLephrine (100 MCG/ML) 5ML SYG ONE (18:02)
[2017-01-30] MEDS ORDERED: ONDANSETRON 4 MG INJ ONE (18:22)
[2017-01-30] MEDS ORDERED: GLYCOPYRROLATE 0.4 MG INJ ONE (18:23)
[2017-01-30] MEDS ORDERED: ROCURONIUM 50 MG INJ ONE (18:23)
[2017-01-30] MEDS ORDERED: NEOSTIGMINE 3 MG/3 ML SYRINGE ONE (18:23)
[2017-01-30] MEDS ORDERED: LIDOCAINE 2% (SDV) 5 ML INJ ONE (18:23)
[2017-01-30] MEDS ORDERED: PROPOFOL 20 ML ONE (18:23)
[2017-01-30] MEDS ORDERED: CEFAZOLIN 1 GM INJ ONE (18:23)
--- NOTE | 2017-01-30 18:32 | OPPN ---
Date/Time of Note Date/Time of Note DATE: 01/30/17 TIME: 18:28 Proc Note GI Procedure Date 01/30/17 Pre-procedure Diagnosis * Choledocholithiasis * 5 week IUP Post-procedure Diagnosis Assessment: * Choledocholithiasis by MRCP * Post sphincterotomy * Post placement of fully covered 10 x 60 mm biliary stent Plan: * Advance diet as tolerated * Repeat liver function tests tomorrow * If patient is able to tolerate diet and is pain-free outpatient follow-up is appropriate * The patient will required removal of stent, removal of biliary stone and cholecystectomy upon her delivery. This was discussed with the patient in detail prior to the initiation of the procedure Surgeon see signature line Pool Technician none Anesthesia Type: general Anesthesiologist: KYLAH MALONE MD Tourniquet Time none EBL none Transfusion required none Grafts/Implants 10 x 60 fully covered biliary Wallstent Tubes/Drains none Complication(s) none Pt Condition post procedure: stable Disposition: PACU Indications: other (Choledocholithiasis) Procedure Description After informed consent, with the patient/relatives understanding the procedure, its indications, potential risks and complications, including but not limited to : allergic reaction, bleeding, perforation or infection, as well as dose specifically related to the patient's status and after all pertinent questions were answered to the patients satisfaction, the patient/relatives signed witnessed informed consent. Following this, premedication was administered slowly IV push under careful cardiovascular and respiratory monitoring with pulse oximetry, automatic blood pressure, and monitoring tech. Once the sedative effect was achieved the patient was place in the prone position in the radiology special procedures suite; the side viewing panendoscope was introduced and advanced under visual control. Careful examination of the upper gastrointestinal tract, both on insertion as well as withdrawal of the instrument disclosed the following findings: Esophagus: The mucosa of the entire appears within normal limits. There is no evidence of esophagitis, varices, neoplasm or stricture. No Hiatal Hernia identified. Stomach: Upon entrance to the stomach air was insufflated, the gastric gallagher distended normally, the mucosa of the fundus, body and antrum of the stomach was carefully examined both head-on and on retroflexion, and shows no abnormalities. There is no evidence of gastritis, ulcers, or neoplasm. Pylorus: The pylorus appears patent and within normal limits, with no evidence of gastric outlet obstruction. Duodenum: The duodenal mucosa was carefully examined in the duodenal bulb as well as the second portion of the duodenum and appears unremarkable with no evidence of duodenitis, ulcer or neoplasm. Ampulla of vater: The ampulla of Vater was identified and carefully examined appearing within normal limits. Cannulation: At this point cannulation was accomplished with the following fluoroscopic findings: Pancreatogram: Avoided Cholangiogram: We were able to cannulate and advanced guidewire a single fluoroscopic exposure was used to confirm location by injection of small amount of contrast material. At this point a standard sphincterotomy was performed following this fully covered 10 x 60 mm Wallstent was introduced and deployed in the biliary tree without difficulty with excellent drainage. The instrument was then withdrawn the patient tolerated the procedure well and was transfer out of the endoscopy suite awake, and in good condition to continue to recover under observation. Copies To: CC: OK NGUYEN MD, MORDO MD Jan 30, 2017 18:32
[2017-01-30] MEDS ORDERED: ALBUTEROL 0.5% (NEB) 2.5 MG/0.5 ML AMP ONE (18:44)
[2017-01-30 18:56] LABS: ALBUMIN 3.5 g/dl (3.3-4.9); BILIRUBIN,INDIRECT 0.2 mg/dl (0-1.1); BILIRUBIN,TOTAL 0.2 mg/dl (0.2-1.3); TOTAL PROTEIN 7.2 g/dl (6.1-8.1)
[2017-01-30] MEDS ORDERED: ALBUTEROL 0.083% (NEB) 2.5 MG/3 ML AMP HHN PRN (19:00)
[2017-01-30] MEDS ORDERED: morphine (1 MG/ML) 10ML SYRINGE IV ONE (19:10)
[2017-01-30] MEDS ORDERED: IPRATROPIUM (NEB) 0.5 MG/2.5 ML AMP HHN PRN (19:30)
[2017-01-30] MEDS ORDERED: morphine (1 MG/ML) 10ML SYRINGE IV PRN (19:30)
[2017-01-30] MEDS ORDERED: ONDANSETRON 4 MG INJ IV PRN (19:30)
[2017-01-31] MEDS: PIPER-TAZO 2.25 GM (PMX) 50 ML IVPB SCH ×4 (00:26→17:33)
[2017-01-31 02:13] VITALS: BP 118/75; RESP 8
[2017-01-31] MEDS: morphine 4 MG/ML VIAL IV PRN ×5 (03:02→22:04)
[2017-01-31] MEDS: DEXTROSE 5%-0.45% NACL 1,000 ML IV SCH ×3 (05:46→21:07)
[2017-01-31 07:37] VITALS: BP 128/68; RESP 18
--- NOTE | 2017-01-31 07:53 | RADRPT ---
PROCEDURE: X-ray fluoroscopy guidance CLINICAL INDICATION: Abdominal pain, ERCP, fluoroscopic guidance TECHNIQUE: Fluoroscopic guidance was utilized for an intraoperative procedure. COMPARISON: None available FINDINGS: Fluoroscopic guidance was utilized for and intraoperative procedure. 93.1 seconds of fluoroscopy jyothi e was utilized for the procedure. 1 x-ray images were obtained during the procedure in progress. No gross filling defects are seen in the common bile duct. IMPRESSION: X-ray fluoroscopic guidance utilized for intraoperative procedure. No gross filling defects in the common bile duct. Please see procedure note for details. RPTAT: AA .Crow Kennedy MD, MD Date Time Electronically viewed and signed by .Crow Kennedy MD, MD on 01/31/2017 07:53 .P/
[2017-01-31] MEDS: FAMOTIDINE 20 MG INJ IV SCH ×2 (08:23→21:06)
--- NOTE | 2017-01-31 11:11 | PN ---
Date/Time of Note Date/Time of Note DATE: 01/31/17 TIME: 11:07 Assessment/Plan VTE Prophylaxis VTE Prophylaxis Intervention: SCD's Lines/Catheters [facility] Peripheral IV Urinary Cath still in place: No Assessment/Plan Chief Complaint/Hosp Course Assessment/Plan 1. Cholelithiasis with probable choledocholithiasis in a pt who is 5 weeks -MRCP positive for choledocholithiasis -General surgery and special procedure technologist had consulted -Continue antibiotics -Status post ERCP * Post sphincterotomy * Post placement of fully covered 10 x 60 mm biliary stent Advance diet as tolerated * Repeat liver function tests tomorrow * If patient is able to tolerate diet and is pain-free outpatient follow-up is appropriate * The patient will required removal of stent, removal of biliary stone and cholecystectomy upon her delivery. This was discussed with the patient in detail prior to the initiation of the procedure 2. Elevated Transaminases/alk phos -Likely secondary to #1 , continue to monitor 3. Iron deficiency anemia -Stable -Follow up with SUBSTANCE ABUSE PREVENTION COORDINATOR as outpatient 4. GERD, related to - PPI 5. Hypokalemia repleted Follow up electrolytes in a.m. Continue monitor patient closely for recommendation management treatments medical course DVT prophylaxis and SCD Disposition: Plan to discharge home tomorrow if liver function test trends down and patient tolerates oral intake Problems: Subjective 24 Hr Interval Summary Free Text/Dictation Status post ERCP on 01/30/2017 Denies of any chest pain or shortness of breath Denies of any abdominal pain Has been started on clear liquid diet and has been tolerating the p.o. intake Exam/Review of Systems Vital Signs Vitals Vital Signs Date Time Temp Pulse Resp B/P Pulse Ox O2 Delivery O2 Flow Rate FiO2 01/31/17 07:37 98.3 59 18 128/68 100 01/30/17 22:00 Nasal Cannula 2.0 Intake and Output 01/30/17 01/30/17 01/31/17 14:59 22:59 06:59 Intake Total 50 ml 1050 ml 1150 ml Balance 50 ml 1050 ml 1150 ml Exam General: The patient is well-developed, Not in acute distress. HEENT: Atraumatic, normocephalic. The pupils are equal and round . Neck: Supple with full range of motion. Chest: Normal expansion of the thorax during inspiration Lungs: Clear to auscultation bilaterally Heart: Normal S1-S2, Regular rhythm and rate. Abdomen: Soft , nontender, nondistended , bowel sounds are present. Extremities: Normal to inspection, no edema no cyanosis Neurologic: Normal mental status,The patient is awake, alert and oriented . Results Result Diagram: 01/30/1754101/30/17541 Medications Medications Current Medications Famotidine (Pepcid Iv) 20 mg BID IV Last administered on 01/31/17 08:23; Admin Dose 20 MG; Start 01/29/17 at 02:00 Morphine Sulfate (morphine) 3 mg Q4H PRN IV PAIN Last administered on 08:22; Admin Dose 3 MG; Start 01/29/17 at 02:00 Ondansetron HCl 4 mg 4 mg Q6H PRN IV NAUSEA AND/OR VOMITING; Start 01/29/17 at 02:00 Dextrose/Sodium Chloride 1,000 ml @ 100 mls/hr Q10H IV Last administered on 05:46; Admin Dose 100 MLS/HR; Start 01/29/17 at 02:00 Piperacillin Sod/ Tazobactam Sod (Zosyn 2.25gm/ 50ml (Pmx)) 50 ml @ 100 mls/hr Q6 IVPB Last administered on 01/31/17 05:46; Admin Dose 100 MLS/HR; Start at 08:30 CHARLIE BERGMAN MD Jan 31, 2017 11:11
[2017-01-31 12:22] LABS: ALBUMIN 3.9 g/dl (3.3-4.9); BILIRUBIN,INDIRECT 0.3 mg/dl (0-1.1); BILIRUBIN,TOTAL 0.3 mg/dl (0.2-1.3); TOTAL PROTEIN 7.3 g/dl (6.1-8.1)
[2017-01-31 14:00] VITALS: BP 105/58; RESP 18
--- NOTE | 2017-01-31 15:20 | PN ---
Date/Time of Note Date/Time of Note DATE: 01/31/17 TIME: 15:16 Assessment/Plan VTE Prophylaxis VTE Prophylaxis Intervention: SCD's Lines/Catheters IV Catheter Type (from [facility]): Peripheral IV Urinary Cath still in place: No Assessment/Plan Assessment/Plan Assessment * Choledocholithiasis ERCP Post sphincterotomy * Post placement of fully covered 10 x 60 mm biliary stent * uterus 5 weeks aog Plan * Progress diet * continue present management * Case discussed with Dr Phillips * Further orders will depend on clinical course Subjective 24 Hr Interval Summary Free Text/Dictation * course reviewed with RN * Patient seen and examined * ERCP * Post sphincterotomy * Post placement of fully covered 10 x 60 mm biliary stent Exam/Review of Systems Vital Signs Vitals Vital Signs Date Time Temp Pulse Resp B/P Pulse Ox O2 Delivery O2 Flow Rate FiO2 01/31/17 14:00 98.1 69 18 105/58 100 01/30/17 22:00 Nasal Cannula 2.0 Intake and Output 01/30/17 01/30/17 01/31/17 15:00 23:00 07:00 Intake Total 1100 ml 1100 ml Balance 1100 ml 1100 ml Exam Constitutional: alert, well developed Head: atraumatic, normocephalic Neck: non-tender, supple Respiratory: clear to auscultation, normal air movement Cardiovascular: nl pulses, regular rate and rhythm Gastrointestinal: non-tender, soft Musculoskeletal: nl extremities to inspection, nl gait and stance Extremities: normal pulses Neurological: nl mental status Results Result Diagram: 01/30/17 0542 01/31/17 1130 Results 24 hrs Laboratory Tests Test 01/31/17 11:30 Potassium Level 3.6 Total Bilirubin 0.3 Direct Bilirubin 0.00 Indirect Bilirubin 0.3 Aspartate Amino Transf (AST/SGOT) 85 H Alanine Aminotransferase (ALT/SGPT) 226 H Alkaline Phosphatase 270 H Total Protein 7.3 Albumin 3.9 Medications Medications Current Medications Famotidine (Pepcid Iv) 20 mg BID IV Last administered on 01/31/17 08:23; Admin Dose 20 MG; Start 01/29/17 at 02:00 Morphine Sulfate (morphine) 3 mg Q4H PRN IV PAIN Last administered on 12:15; Admin Dose 3 MG; Start 01/29/17 at 02:00 Ondansetron HCl 4 mg 4 mg Q6H PRN IV NAUSEA AND/OR VOMITING; Start 01/29/17 at 02:00 Dextrose/Sodium Chloride 1,000 ml @ 100 mls/hr Q10H IV Last administered on 05:46; Admin Dose 100 MLS/HR; Start 01/29/17 at 02:00 Piperacillin Sod/ Tazobactam Sod (Zosyn 2.25gm/ 50ml (Pmx)) 50 ml @ 100 mls/hr Q6 IVPB Last administered on 01/31/17 12:14; Admin Dose 100 MLS/HR; Start at 08:30 HUMBLE AVALSO NP Jan 31, 2017 15:20
--- NOTE | 2017-01-31 16:37 | PN ---
Date/Time of Note Date/Time of Note DATE: 01/31/17 TIME: 16:32 Assessment/Plan Lines/Catheters IV Catheter Type (from [facility]): Peripheral IV Dillon in Place (from [facility]): No Assessment/Plan Chief Complaint/Hosp Course 1. Cholelithiasis with choledocholithiasis: s/p ercp with stent and sphincterotomy -eventual lap suzette after she delivers; r/b/a of lap suzette discussed with patient she is opting to do the surgery after she delivers -diet advance per gi 2. Transaminitis: 2/2 above;improving -as above 3. Abdominal pain: improved -pain management 4. Anemia: no femi bleed noted -monitor and transfuse prn 5. GERD: asymptomatic currently -ppi Patient seen and examined in collaboration with Dr. Aramis Rodriguez. Thank you. Problems: Subjective 24 Hr Interval Summary Abdominal pain improved. Tolerating clears. C/o myalgias but no fevers, chills. No n/v, cp, palpitations, sob, friend, dizziness. S/p ercp with sphincterotomy with stent placement Exam/Review of Systems Vital Signs Vitals Vital Signs Date Time Temp Pulse Resp B/P Pulse Ox O2 Delivery O2 Flow Rate FiO2 01/31/17 14:00 98.1 69 18 105/58 100 01/30/17 22:00 Nasal Cannula 2.0 Intake and Output 01/30/17 01/30/17 01/31/17 14:59 22:59 06:59 Intake Total 50 ml 1050 ml 1150 ml Balance 50 ml 1050 ml 1150 ml Exam Free Text/Dictation Constitutional: alert, oriented Psych: nl Head: atraumatic, normocephalic Eyes: nl lids, nl sclera ENMT: mucosa pink and moist, nl nasal mucosa & septum Neck: non-tender, supple, No jvd Respiratory: normal air movement Cardiovascular: nl pulses, regular rate and rhythm, No edema Gastrointestinal: min-tender, other (negative hall's; rotund), soft Genitourinary - Female: nl external genitalia Musculoskeletal: nl extremities to inspection Extremities: normal pulses, No edema Neurological: nl mental status, nl speech, nl strength Skin: No rash or lesions Lymph: nl lymph nodes Results Result Diagram: 01/30/17 0542 01/31/17 1130 MATEO YARBROUGH NP Jan 31, 2017 16:37
[2017-01-31 19:59] VITALS: BP 134/77; RESP 18
[2017-02-01] MEDS: PIPER-TAZO 2.25 GM (PMX) 50 ML IVPB SCH ×3 (00:11→12:09)
[2017-02-01 02:10] VITALS: BP 121/64; PULSE 66; RESP 18
[2017-02-01 06:38] LABS: BASOPHILS % 0.3 % (0.0-2.0); EOSINOPHILS # 0.2 10^3/ul (0.0-0.5); EOSINOPHILS % 1.8 % (0.0-7.0); HEMATOCRIT 32.9 % (37.0-47.0); HEMOGLOBIN 10.3 g/dl (12.0-16.0); LYMPHOCYTES # 1.6 10^3/ul (0.8-2.9); LYMPHOCYTES % 14.7 % (15.0-51.0); MEAN CORPUSCULAR HEMOGLOBIN 26.4 pg (29.0-33.0); MEAN CORPUSCULAR HGB CONC 31.3 g/dl (32.0-37.0); MEAN CORPUSCULAR VOLUME 84.4 fl (82.0-101.0); MEAN PLATELET VOLUME 9.1 fl (7.4-10.4); MONOCYTE # 0.6 10^3/ul (0.3-0.9); MONOCYTES % 5.7 % (0.0-11.0); NEUTROPHIL # 8.5 10^3/ul (1.6-7.5); NEUTROPHILS % 77.1 % (39.0-77.0); PLATELET COUNT 322 10^3/UL (140-415)
[2017-02-01 07:18] LABS: ALBUMIN 3.5 g/dl (3.3-4.9); ALBUMIN/GLOBULIN RATIO 1.09; BILIRUBIN,INDIRECT 0.3 mg/dl (0-1.1); BILIRUBIN,TOTAL 0.3 mg/dl (0.2-1.3); CALCIUM 8.5 mg/dl (8.4-10.2); CREATININE 0.56 mg/dl (0.44-1.00); MAGNESIUM 1.8 mg/dl (1.7-2.5); POTASSIUM 3.6 mmol/L (3.5-5.1); TOTAL PROTEIN 6.7 g/dl (6.1-8.1)
[2017-02-01 08:00] VITALS: BP 108/70; PULSE 71; RESP 16
[2017-02-01] MEDS: FAMOTIDINE 20 MG INJ IV SCH (08:10)
[2017-02-01] MEDS: DEXTROSE 5%-0.45% NACL 1,000 ML IV SCH ×2 (08:11)
--- NOTE | 2017-02-01 08:42 | PN ---
Date/Time of Note Date/Time of Note DATE: 02/01/17 TIME: 08:34 Assessment/Plan Lines/Catheters IV Catheter Type (from [facility]): Peripheral IV Dillon in Place (from [facility]): No Assessment/Plan Chief Complaint/Hosp Course 1. Cholelithiasis with choledocholithiasis: s/p ercp with stent and sphincterotomy -eventual lap suzette after she delivers; r/b/a of lap suzette discussed with patient she is opting to do the surgery after she delivers -she may be discharged per medical/gi team -diet advance per gi 2. Transaminitis: 2/2 above; continuing to improve -as above 3. Abdominal pain: improved -pain management 4. Anemia: no femi bleed noted -monitor and transfuse prn 5. GERD: asymptomatic currently -ppi Patient seen and examined in collaboration with Dr. Aramis Rodriguez. Thank you. Problems: Subjective 24 Hr Interval Summary Feels much better. Abdominal pain much improved. Tolerating clears. No bloating , nausea, vomiting, sob, congested cough, cp, palpitations, friend, dizziness, myalgias. Exam/Review of Systems Vital Signs Vitals Vital Signs Date Time Temp Pulse Resp B/P Pulse Ox O2 Delivery O2 Flow Rate FiO2 02/01/17 02:10 98.1 66 18 121/64 98 Room Air 01/30/17 22:00 2.0 Intake and Output 01/31/17 01/31/17 02/01/17 15:00 23:00 07:00 Intake Total 50 ml 2450 ml 1140 ml Balance 50 ml 2450 ml 1140 ml Exam Free Text/Dictation Constitutional: alert, oriented Psych: nl Head: atraumatic, normocephalic Eyes: nl lids, nl sclera ENMT: mucosa pink and moist, nl nasal mucosa & septum Neck: non-tender, supple, No jvd Respiratory: normal air movement Cardiovascular: nl pulses, regular rate and rhythm, No edema Gastrointestinal: min-tender (improved), other (negative hall's; rotund), soft Genitourinary - Female: nl external genitalia Musculoskeletal: nl extremities to inspection Extremities: normal pulses, No edema Neurological: nl mental status, nl speech, nl strength Skin: No rash or lesions Lymph: nl lymph nodes Results Result Diagram: 02/01/17 0553 02/01/1753 MATEO YARBROUGH NP Feb 01, 2017 08:42
[2017-02-01] MEDS ORDERED: ACETAMINOPHEN 325 MG TAB PO PRN (12:05)
[2017-02-01] MEDS ORDERED: AMOX1TAB10 PO (12:44)
--- NOTE | 2017-02-01 12:57 | DS ---
Date/Time of Note Date/Time of Note DATE: 02/01/17 TIME: 12:47 Discharge Summary Admission/Discharge Info Admit Date/Time Jan 29, 2017 at 00:01 Discharge Date/Time Discharge Diagnosis 1. Acute cholecystitis with Cholelithiasis with choledocholithiasis: s/p ERCP with stent and sphincterotomy, stable, home with augmentin, follow up with GI and surgery 2. Transaminitis, due to choledocholithiasis, improving, follow up with PCP 3. Normal , follow up with OB 4. Anemia, stable Patient Condition: Stable Hx of Present Illness This is a 36-year-old female who states she is 5 weeks presented to ER c/o abd pain of several months duration. Patient was just admitted at an outside hospital and was told she has Gallstones and that she needs a surgery. She left AMA after she was told the baby has to be taken out in order to perform surgery. MRCP was performed at outside hospital and that is the only record she came with. She also c/o GERD like symptom during her . Reported nausea. Denied chest pain, SOB, fever or chills. In ER, RUQ u/s showed Cholelithiasis with interval development of gallbladder wall thickening and common bile duct dilatation compared to the prior study of 06/15/2015 unable to exclude cholecystitis despite the lack of reporting for a sonographic Laird's sign. Lab shows AST 266, ALT 381, AP 277 and hgb of 11.8. . Hospital Course Abdominal US, MRCP Cholelithiasis with gallbladder wall thickening and common bile duct 0.5 cm stone. Patient got ercp with stent and sphincterotomy on 2016 without complications. Patient's abdominal pain resolved. She will be discharged on 10 days augmentin for cholecystitis. She will follow up with GI and surgery. She will need cholecystectomy after delivery. Transaminitis is due to choledocholithiasis, that is improving after the procedure. Patient will follow up with GI outpatient for liver enzymes follow up with CBD stent. Home Meds Active Scripts Amoxicillin/Potassium Clav (Amox-Clav 875-125 mg Tablet) 875-125 mg Tab, 1 TAB PO BID, #20 TAB Prov:EDVIN RODGERS MD 02/01/17 Reported Medications Folic Acid (Folic Acid) 0.8 Mg Capsule, 0.8 MG PO DAILY, CAP 01/25/16 Ferrous Sulfate (Iron) 325 Mg Capsule.er, 325 MG PO DAILY, CAP 01/25/16 Vit-Iron Fumarate-FA ( Vitamin Tablet) 1 Each Tablet, 1 TAB PO DAILY, TAB 12/20/15 Discontinued Reported Medications Amoxicillin Trihydrate (Amoxicillin) 500 Mg Tablet, 500 MG PO Q8, #30 TAB 01/25/16 Calcium Carbonate (CALCIUM) 600 Mg Tablet, 600 MG PO DAILY, TAB 01/25/16 Follow-up Plan PCP in one week Dr. Phillips in [address] Rodriguez after delivery Primary Care Provider Care Physician No Primary Pending Labs Laboratory Tests Test 02/01/17 05:53 White Blood Count 11.010^3/ul (4.8-10.8) Red Blood Count 3.9010^6/ul (4.20-5.40) Hemoglobin 10.3g/dl (12.0-16.0) Hematocrit 32.9% (37.0-47.0) Mean Corpuscular Volume 84.4fl (82.0-101.0) Mean Corpuscular Hemoglobin 26.4pg (29.0-33.0) Mean Corpuscular Hemoglobin Concent 31.3g/dl (32.0-37.0) Red Cell Distribution Width 14.0% (11.5-14.5) Platelet Count 66271^3/UL (140-415) Mean Platelet Volume 9.1fl (7.4-10.4) Neutrophils % 77.1% (39.0-77.0) Lymphocytes % 14.7% (15.0-51.0) Monocytes % 5.7% (0.0-11.0) Eosinophils % 1.8% (0.0-7.0) Basophils % 0.3% (0.0-2.0) Nucleated Red Blood Cells % 0.0/100WBC (0.0-0.0) Neutrophils # 8.510^3/ul (1.6-7.5) Lymphocytes # 1.610^3/ul (0.8-2.9) Monocytes # 0.610^3/ul (0.3-0.9) Eosinophils # 0.210^3/ul (0.0-0.5) Basophils # 0.010^3/ul (0.0-0.1) Nucleated Red Blood Cells # 0.010^3/ul (0.0-0.0) Sodium Level 136mmol/L (135-144) Potassium Level 3.6mmol/L (3.5-5.1) Chloride Level 101mmol/L (97-110) Carbon Dioxide Level 27mmol/L (21-31) Anion Gap 12 (8-16) Blood Urea Nitrogen 4mg/dl (7-20) Creatinine 0.56mg/dl (0.44-1.00) Glucose Level 124mg/dl (70-220) Calcium Level 8.5mg/dl (8.4-10.2) Magnesium Level 1.8mg/dl (1.7-2.5) Total Bilirubin 0.3mg/dl (0.2-1.3) Direct Bilirubin 0.00mg/dl (0.00-0.20) Indirect Bilirubin 0.3mg/dl (0-1.1) Aspartate Amino Transf (AST/SGOT) 52IU/L (15-46) Alanine Aminotransferase (ALT/SGPT) 167IU/L (13-69) Alkaline Phosphatase 216IU/L (42-121) Total Protein 6.7g/dl (6.1-8.1) Albumin 3.5g/dl (3.3-4.9) Globulin 3.20g/dl (1.3-3.2) Albumin/Globulin Ratio 1.09 EDVIN RODGERS MD Feb 01, 2017 12:57
== END 2017-02-01 14:25 | disposition home or self-care (01) | DRG 781 ==
LOC: E/R 17:23 → MS2 01-29 00:01
PROVIDERS: ADMIT Internal Medicine; ATTEND Internal Medicine
PROC: BF10YZZ Fluoroscopy of Bile Ducts using Other Contrast (ICD-10-PCS; 2017-01-30)
PROC: 0F798DZ Dilation of Common Bile Duct with Intraluminal Device, Via Natural or Artificial Opening Endoscopic (ICD-10-PCS; principal; 2017-01-30 14:00)
DX: O99.611 Diseases of the digestive system complicating pregnancy, first trimester (principal); K80.63 Calculus of gallbladder and bile duct with acute cholecystitis with obstruction; D50.9 Iron deficiency anemia, unspecified; O99.011 Anemia complicating pregnancy, first trimester; K21.9 Gastro-esophageal reflux disease without esophagitis; Z3A.01 Less than 8 weeks gestation of pregnancy
CPT/HCPCS: 36415; 74181; 74330; 76705; 76801; 76817; 80053; 80076; 82728; 83540; 83690; 83735; 84132; 84702; 85025; 87081; 96374; 96375; J0690; J1170; J1335; J2270; J2370; J2405; J2543; J2710; J3010; J7030; J7042; Q9967

== ENCOUNTER 2017-02-23 09:55 | Inpatient (IN) | payer MEDICAID ==
[~2017-02-23] VITALS: Ht 157.5 cm; Wt 74.8 kg
[~2017-02-23 09:55] MED LIST changes: +AMOX1TAB10 PO; -AMOX500T PO; -CALC600T5 PO
[2017-02-23] MEDS ORDERED: SOD CHLORIDE 0.9% 1,000 ML IV STA (10:31)
[2017-02-23 10:57] LABS: BASOPHILS % 0.2 % (0.0-2.0); EOSINOPHILS # 0.1 10^3/ul (0.0-0.5); EOSINOPHILS % 0.6 % (0.0-7.0); HEMATOCRIT 35.5 % (37.0-47.0); HEMOGLOBIN 11.4 g/dl (12.0-16.0); LYMPHOCYTES # 1.7 10^3/ul (0.8-2.9); LYMPHOCYTES % 12.2 % (15.0-51.0); MEAN CORPUSCULAR HEMOGLOBIN 26.5 pg (29.0-33.0); MEAN CORPUSCULAR HGB CONC 32.1 g/dl (32.0-37.0); MEAN CORPUSCULAR VOLUME 82.4 fl (82.0-101.0); MEAN PLATELET VOLUME 8.8 fl (7.4-10.4); MONOCYTE # 0.6 10^3/ul (0.3-0.9); MONOCYTES % 4.5 % (0.0-11.0); NEUTROPHIL # 11.5 10^3/ul (1.6-7.5); NEUTROPHILS % 82.1 % (39.0-77.0); PLATELET COUNT 304 10^3/UL (140-415); RED BLOOD COUNT 4.31 10^6/ul (4.20-5.40)
[2017-02-23] MEDS ORDERED: ACETAMINOPHEN 325 MG TAB PO ONE (11:00)
--- NOTE | 2017-02-23 11:00 | ERD ---
ER Documentation Chief Complaint Date/Time DATE: 02/23/17 TIME: 10:57 Chief Complaint Complains of left upper quadrant abd pain x 2 days and 8 wks . HPI Patient is a 36-year-old Yakut-speaking female, who is states that she is and presents to the ED with right upper quadrant pain 2 days, however pain started 1 month ago. States that she has had this pain in the past and has been diagnosed with gallstones. Patient had a recent ERCP and had a stent and sphincterectomy and was admitted on 01/29 and discharge 02/01/2017. She states that she had bilious vomiting, green last night. She denies pelvic pain or urinary symptoms or vaginal bleeding. Dr. Lerma is OB doctor Denies fever or diarrhea. Decrease in appetite and not tolerating fluids. ROS All systems reviewed and are negative except as per history of present illness. Medications Home Meds Active Scripts Amoxicillin/Potassium Clav (Amox-Clav 875-125 mg Tablet) 875-125 mg Tab, 1 TAB PO BID, #20 TAB Prov:EDVIN RODGERS MD 02/01/17 Reported Medications Folic Acid (Folic Acid) 0.8 Mg Capsule, 0.8 MG PO DAILY, CAP 01/25/16 Ferrous Sulfate (Iron) 325 Mg Capsule.er, 325 MG PO DAILY, CAP 01/25/16 Vit-Iron Fumarate-FA ( Vitamin Tablet) 1 Each Tablet, 1 TAB PO DAILY, TAB 12/20/15 Allergies Allergies: Coded Allergies: No Known Drug Allergy (Verified Allergy, Unknown, 01/25/16) PMhx/Soc History of Surgery: No Anesthesia Reaction: No Hx Neurological Disorder: No Hx Respiratory Disorders: No Hx Cardiac Disorders: No Hx Psychiatric Problems: No Hx Miscellaneous Medical Probl: Yes (cholelithiasis, choledocholithiasis) Hx Alcohol Use: No Hx Substance Use: No Hx Tobacco Use: No FmHx Family History: No coronary disease, No diabetes, No other Physical Exam Vitals Vital Signs Date Time Temp Pulse Resp B/P Pulse Ox O2 Delivery O2 Flow Rate FiO2 02/23/17 09:58 99.1 78 20 114/58 100 Physical Exam ER COURSE: I kept the patient and/or family informed of laboratory and diagnostic imaging results throughout the emergency room course. EKG, MONITORS, & DIAGNOSTIC IMAGING: [] PROCEDURES: [] MEDICATIONS: [] LAB INTERPRETATION: CBC showed no evidence of systemic infection or severe anemia. CMP showed no evidence of electrolyte abnormalities, severe acidosis, alkalosis, renal failure , or liver disease. Lipase showed no evidence of acute pancreatitis. UA showed no evidence of leukocytes, nitrites or hematuria. Urine test was negative. MEDICAL DECISION MAKING: This is a [] who presents with []. Vital signs were reviewed. Patient is afebrile. Patient is not hypoxic. DISCHARGE: Result Diagram: 02/23/17 1045 02/23/17 1045 Results 24 hrs Laboratory Tests Test 02/23/17 10:45 White Blood Count 14.010^3/ul Red Blood Count 4.3110^6/ul Hemoglobin 11.4g/dl Hematocrit 35.5% Mean Corpuscular Volume 82.4fl Mean Corpuscular Hemoglobin 26.5pg Mean Corpuscular Hemoglobin Concent 32.1g/dl Red Cell Distribution Width 14.0% Platelet Count 30631^3/UL Mean Platelet Volume 8.8fl Neutrophils % 82.1% Lymphocytes % 12.2% Monocytes % 4.5% Eosinophils % 0.6% Basophils % 0.2% Nucleated Red Blood Cells % 0.0/100WBC Neutrophils # 11.510^3/ul Lymphocytes # 1.710^3/ul Monocytes # 0.610^3/ul Eosinophils # 0.110^3/ul Basophils # 0.010^3/ul Nucleated Red Blood Cells # 0.010^3/ul Urine Color YELLOW Urine Clarity SLIGHTLY CLOUDY Urine pH 6.0 Urine Specific [place] 1.017 Urine Ketones NEGATIVEmg/dL Urine Nitrite NEGATIVEmg/dL Urine Bilirubin NEGATIVEmg/dL Urine Urobilinogen NEGATIVEmg/dL Urine Leukocyte Esterase 1+Mansi/ul Urine Microscopic RBC 6/HPF Urine Microscopic WBC 9/HPF Urine Squamous Epithelial Cells MANY/HPF Urine Bacteria FEW/HPF Urine Mucus FEW/HPF Urine Hemoglobin 2+mg/dL Urine Glucose NEGATIVEmg/dL Urine Total Protein NEGATIVEmg/dl Sodium Level 140mmol/L Potassium Level 3.6mmol/L Chloride Level 102mmol/L Carbon Dioxide Level 25mmol/L Anion Gap 17 Blood Urea Nitrogen 6mg/dl Creatinine 0.55mg/dl Glucose Level 115mg/dl Calcium Level 9.1mg/dl Total Bilirubin 0.6mg/dl Direct Bilirubin 0.00mg/dl Indirect Bilirubin 0.6mg/dl Aspartate Amino Transf (AST/SGOT) 23IU/L Alanine Aminotransferase (ALT/SGPT) 33IU/L Alkaline Phosphatase 98IU/L Total Protein 8.1g/dl Albumin 4.3g/dl Globulin 3.80g/dl Albumin/Globulin Ratio 1.13 Lipase 588U/L Current Medications Medications (Trade) Dose Ordered Sig/Brisa Route PRN Reason Start Time Stop Time Status Last Admin Dose Admin Sodium Chloride (NS) 1,000 ml @ 1,000 mls/hr Q1H STAT IV 02/23/17 10:31 02/23/17 11:30 02/23/17 11:25 Acetaminophen (Tylenol Tab) 650 mg ONCE ONCE PO 02/23/17 11:00 02/23/17 11:01 DC 02/23/17 11:25 Procedures/MDM ER COURSE: I kept the patient and/or family informed of laboratory and diagnostic imaging results throughout the emergency room course. MEDICAL DECISION MAKING: This is a 36-year-old female who is approximately 8 weeks who presents with bilious vomiting and right upper quadrant pain 2 days with a history of admission for choledocholithiasis and ERCP and stent placement. Vital signs were reviewed. Patient is afebrile. Patient is not hypoxic. Consulted with my supervising physician Dr. Huffman regarding this patient. Patient will be admitted. Pending labs. Patient is stable at transfer to ED 1. All questions were answered. Departure Diagnosis: Primary Impression: Cholelithiasis Cholelithiasis location: other site Biliary obstruction: without biliary obstruction Qualified Code: K80.80 - Biliary calculus of other site without obstruction Condition: DAVID Michael PA-C Feb 23, 2017 10:59
[2017-02-23 11:18] LABS: ALBUMIN 4.3 g/dl (3.3-4.9); ALBUMIN/GLOBULIN RATIO 1.13; BILIRUBIN,INDIRECT 0.6 mg/dl (0-1.1); BILIRUBIN,TOTAL 0.6 mg/dl (0.2-1.3); CALCIUM 9.1 mg/dl (8.4-10.2); CREATININE 0.55 mg/dl (0.44-1.00); POTASSIUM 3.6 mmol/L (3.5-5.1); TOTAL PROTEIN 8.1 g/dl (6.1-8.1)
--- NOTE | 2017-02-23 11:18 | RADRPT ---
PROCEDURE: US Abdomen. CLINICAL INDICATION: abdominal pain TECHNIQUE: Multiple real-time images were acquired of the patient's right upper quadrant abdomen a nd retroperitoneum utilizing a high resolution transducer. COMPARISON: US ABDOMEN 01/28/2017 FINDINGS: The liver demonstrates normal echogenicity. The liver is normal in size and no focal solid lesions are seen. The liver measures 14.4 cm in length. The portal vein is patent with normal direction of f low. No intrahepatic biliary dilatation is seen. The gallbladder is contracted. Multiple stones are seen within the gallbladder. The gallbladder wall is thickened, measuring 4.6 mm. There is no evidence of pericholecystic fluid noted. The common bile duct measures 7 mm. The visualized portions of the pancreas are heterogeneous. No free fluid is identified. The right kidney is normal in size, and demonstrate normal echogenicity and cortical thickness. The right kidney measures 10.5 cm in long dimension. There is no evidence of hydronephrosis. There are no kidney stones. RPTAT: AA IMPRESSION: Cholelithiasis with gallbladder wall thickening. No evidence of pericholecystic fluid. Mildly dilated CBD. No significant interval change. .Alfonso Pompa MD, Date Time Electronically viewed and signed by .Alfonso Pompa MD, on 02/23/2017 11:18 .S/
[2017-02-23 11:23] LABS: ADD UMIC YES; UR ASCORBIC ACID NEGATIVE (NEGATIVE); UR BACTERIA FEW /HPF (NONE SEEN); UR BILIRUBIN (Dip) NEGATIVE (NEGATIVE); UR BLOOD (Dip) 2+ mg/dL (NEGATIVE); UR CLARITY SLIGHTLY CLOUDY (CLEAR); UR COLOR YELLOW (YELLOW); UR GLUCOSE (Dip) NEGATIVE (NEGATIVE); UR KETONES (Dip) NEGATIVE (NEGATIVE); UR LEUKOCYTE ESTERASE (Dip) 1+ Leu/ul (NEGATIVE); UR MUCUS FEW /HPF (NONE SEEN); UR NITRITE (Dip) NEGATIVE (NEGATIVE); UR RBC 6 /HPF (0-5); UR SPECIFIC GRAVITY (Dip) 1.017 (1.003-1.030); UR SQUAMOUS EPITHELIAL CELL MANY /HPF (FEW); UR TOTAL PROTEIN (Dip) NEGATIVE (NEGATIVE); UR UROBILINOGEN (Dip) NEGATIVE (NEGATIVE)
--- NOTE | 2017-02-23 11:27 | RADRPT ---
PROCEDURE: OBSTETRICAL ULTRASOUND WITH ENDOVAGINAL IMAGES CLINICAL INDICATION: abdominal pain TECHNIQUE: Multiple sonographic images of the pelvis were obtained utilizing a transabdominal and endovaginal technique. The images were reviewed on a PACS workstation. COMPARISON: Obstetrical ultrasound from 01/28/2017 LMP: 12/18/2016 FINDINGS: There is a single live intrauterine with heart rate of 176 beats per minute, mean sa c diameter of 3.44 cm, and crown-rump length of 1.59 cm which is consistent with a gestational age o f 8 weeks, 2 days . The estimated date of delivery by ultrasound is 10/03/2017 . The estimated gestational age by LMP is 9 weeks, 4 days . The estimated date of delivery by LMP is 09/24/2017 . Bilateral ovaries are not visualized. There are no abnormal adnexal masses. No significant pelvic free fluid is identified. IMPRESSION: Single live intrauterine consistent with a gestational age of 8 weeks, 2 days . The estimated date of delivery is 10/03/2017 . Dating by ultrasound is within 9 days of dating by LMP. No subchorionic hemorrhage is identified. Bilateral ovaries are not visualized. There are no abnormal adnexal masses. RPTAT: EE Physician Rose Date Time Electronically viewed and signed by Physician Rose on 02/23/2017 11:27 /
[2017-02-23] MEDS ORDERED: PIPER-TAZO 3.375 GM IV (PMX) 100 ML IVPB ONE (12:00)
[2017-02-23] MEDS ORDERED: ACETAMINOPHEN 325 MG TAB PO PRN ×2 (12:00→16:00)
[2017-02-23] MEDS ORDERED: ONDANSETRON 4 MG INJ IV PRN ×2 (12:00→16:00)
--- NOTE | 2017-02-23 15:46 | HP ---
Date/Time of Note Date/Time of Note DATE: 02/23/17 TIME: 15:36 Assessment/Plan VTE Prophylaxis VTE Prophylaxis Intervention: SCD's Assessment/Plan Chief Complaint/Hosp Course 1. Sepsis secondary to UTI Follow-up on urine culture Rocephin IV 2. Mild pancreatitis monitor 3. History of cholelithiasis with choledocholithiasis status post stent placement Plan is for cholecystectomy after patient delivers 4. Intrauterine gestation at 8 weeks Prophylaxis: SCDs Problems: HPI/ROS Admit Date/Time Admit Date/Time 02/23/2017 Hx of Present Illness Patient is a 36-year-old female with a history of cholelithiasis with choledocholithiasis: s/p ERCP with stent and sphincterotomy approximately 3 weeks ago. Patient is 8 weeks and during last hospitalization it was decided that she would have a laparoscopic cholecystectomy after she delivered. Patient presents with 1 week of dysuria and urgency as well as 1 day of midepigastric pain. Patient denies any nausea vomiting, in the ED UA suggested a UTI, patient denies any flank pain. ROS Constitutional: improved, no complaints Eyes: no complaints ENT: no complaints Respiratory: no complaints Cardiovascular: no complaints Gastrointestinal: pain Genitourinary: dysuria Musculoskeletal: no complaints Skin: no complaints Neurologic: no complaints Endocrine: no complaints Lymphatic: no complaints Psychological: nl mood/affect, no complaints Immunologic: no complaints PMH/Family/Social Past Medical History As per HPI, patient has had 5 pregnancies Past Surgical History Past Surgical Hx: no surgical history Family History Significant Family History: no pertinent family hx Social History Alcohol Use: none Smoking Status: Never smoker Drug Use: none Exam/Review of Systems Vital Signs Vitals Vital Signs Date Time Temp Pulse Resp B/P Pulse Ox O2 Delivery O2 Flow Rate FiO2 02/23/17 09:58 99.1 78 20 114/58 100 Exam Constitutional: alert, oriented Respiratory: clear to auscultation Cardiovascular: regular rate and rhythm Gastrointestinal: soft, No distended Musculoskeletal: nl extremities to inspection Labs Result Diagram: 02/23/17 1045 02/23/17 1045 CAILIN ENCARNACION Feb 23, 2017 15:46
[2017-02-23 15:49] VITALS: BP 120/69; RESP 18
[2017-02-23] MEDS ORDERED: NACL 0.9% 3 ML SYG IV SCH (16:00)
[2017-02-23 16:12] VITALS: Ht 157.5 cm; Wt 74.8 kg
[2017-02-23] MEDS: CEFTRIAXONE 1 GM/50 ML (PMX) 50 ML IVPB SCH (16:56)
[2017-02-23] MEDS: HYDROCODONE/APAP (5/325) TAB PO PRN (18:20)
[2017-02-23] MEDS: morphine 2 MG INJ IV PRN (22:52)
[2017-02-23 23:00] VITALS: BP 97/54; PULSE 74; RESP 18
[2017-02-24] MEDS: HYDROCODONE/APAP (5/325) TAB PO PRN (02:44)
[2017-02-24 02:45] VITALS: BP 95/54; PULSE 87; RESP 18
[2017-02-24 05:41] LABS: BASOPHILS % 0.2 % (0.0-2.0); EOSINOPHILS # 0.2 10^3/ul (0.0-0.5); EOSINOPHILS % 1.6 % (0.0-7.0); HEMATOCRIT 31.2 % (37.0-47.0); HEMOGLOBIN 10.1 g/dl (12.0-16.0); LYMPHOCYTES # 1.7 10^3/ul (0.8-2.9); LYMPHOCYTES % 14.9 % (15.0-51.0); MEAN CORPUSCULAR HEMOGLOBIN 26.9 pg (29.0-33.0); MEAN CORPUSCULAR HGB CONC 32.4 g/dl (32.0-37.0); MEAN PLATELET VOLUME 8.8 fl (7.4-10.4); MONOCYTE # 0.9 10^3/ul (0.3-0.9); MONOCYTES % 7.5 % (0.0-11.0); NEUTROPHIL # 8.8 10^3/ul (1.6-7.5); NEUTROPHILS % 75.5 % (39.0-77.0); PLATELET COUNT 266 10^3/UL (140-415); RED BLOOD COUNT 3.76 10^6/ul (4.20-5.40); RED CELL DISTRIBUTION WIDTH 14.1 % (11.5-14.5); WHITE BLOOD COUNT 11.7 10^3/ul (4.8-10.8)
[2017-02-24 06:00] LABS: CALCIUM 7.9 mg/dl (8.4-10.2); CREATININE 0.5 mg/dl (0.44-1.00); MAGNESIUM 1.8 mg/dl (1.7-2.5); PHOSPHORUS 4.1 mg/dl (2.5-4.9); POTASSIUM 3.4 mmol/L (3.5-5.1)
[2017-02-24 08:06] VITALS: BP 109/60; RESP 14
[2017-02-24] MEDS ORDERED: POTASSIUM CHLORIDE (SR) 20 MEQ TAB PO STA (09:00)
[2017-02-24] MEDS: CEPASTAT LOZENGE MT PRN ×2 (11:08→22:57)
--- NOTE | 2017-02-24 13:11 | PN ---
Date/Time of Note Date/Time of Note DATE: 02/24/17 TIME: 13:07 Assessment/Plan VTE Prophylaxis VTE Prophylaxis Intervention: SCD's Lines/Catheters IV Catheter Type (from [facility]): Saline Lock Urinary Cath still in place: No Assessment/Plan Chief Complaint/Hosp Course 1. Right lower quadrant abdominal pain rule out acute appendicitis Have consulted surgery-Dr. Rodriguez, will defer need for CT abdomen to surgery 2. Sepsis likely secondary to UTI Follow-up on urine culture Rocephin IV 3. Mild pancreatitis-resolved 4. Intrauterine gestation at 8 weeks 5. History of cholelithiasis with choledocholithiasis status post stent placement Plan is for cholecystectomy after patient delivers Ultrasound of the abdomen shows Cholelithiasis with gallbladder wall thickening with no evidence of pericholecystic fluid. Mildly dilated CBD with no significant interval change. Prophylaxis: SCDs Problems: Subjective 24 Hr Interval Summary Gastrointestinal: pain (Right lower quadrant) Exam/Review of Systems Vital Signs Vitals Vital Signs Date Time Temp Pulse Resp B/P Pulse Ox O2 Delivery O2 Flow Rate FiO2 02/24/17 08:06 98.0 76 14 109/60 98 02/24/17 02:45 Room Air Intake and Output 02/23/17 02/23/17 02/24/17 15:00 23:00 07:00 Intake Total 300 ml 410 ml Balance 300 ml 410 ml Exam Constitutional: alert, oriented Respiratory: clear to auscultation Cardiovascular: regular rate and rhythm Gastrointestinal: soft, tender (Right lower quadrant), No distended Musculoskeletal: nl extremities to inspection Results Result Diagram: 02/24/17 0457 02/24/17 0457 Results 24 hrs Laboratory Tests Test 02/24/17 04:57 White Blood Count 11.7 H Red Blood Count 3.76 L Hemoglobin 10.1 L Hematocrit 31.2 L Mean Corpuscular Volume 83.0 Mean Corpuscular Hemoglobin 26.9 L Mean Corpuscular Hemoglobin Concent 32.4 Red Cell Distribution Width 14.1 Platelet Count 266 Mean Platelet Volume 8.8 Neutrophils % 75.5 Lymphocytes % 14.9 L Monocytes % 7.5 Eosinophils % 1.6 Basophils % 0.2 Nucleated Red Blood Cells % 0.0 Neutrophils # 8.8 H Lymphocytes # 1.7 Monocytes # 0.9 Eosinophils # 0.2 Basophils # 0.0 Nucleated Red Blood Cells # 0.0 Sodium Level 136 Potassium Level 3.4 L Chloride Level 105 Carbon Dioxide Level 22 Anion Gap 12 Blood Urea Nitrogen 5 L Creatinine 0.50 Glucose Level 90 Hemoglobin A1c 5.8 Calcium Level 7.9 L Phosphorus Level 4.1 Magnesium Level 1.8 Lipase 141 Medications Medications Current Medications Ondansetron HCl (Zofran Inj) 4 mg Q6H PRN IV NAUSEA AND/OR VOMITING; Start at 16:00 Acetaminophen (Tylenol Tab) 650 mg Q6H PRN PO PAIN LEVEL 1-3 OR FEVER; Start 02/23/17 at 16:00 Acetaminophen/ Hydrocodone Bitart 1 tab 1 tab Q6H PRN PO MODERATE PAIN LEVEL 4- 6 Last administered on 02/24/17 02:44; Admin Dose 1 TAB; Start 02/23/17 at 16 :00 Ceftriaxone Sodium (Rocephin) 50 ml @ 100 mls/hr Q24H IVPB Last administered on 02/23/17 16:56; Admin Dose 100 MLS/HR; Start 02/23/17 at 16:00 Morphine Sulfate (morphine) 2 mg Q4H PRN IV PAIN Last administered on 22:52; Admin Dose 2 MG; Start 02/23/17 at 23:00 Phenol (Cepastat Lozenge) 1 lozenge Q1H PRN MT SORE THROAT Last administered on 02/24/17 11:08; Admin Dose 1 LOZENGE; Start 02/24/17 at 10:30 CAILIN ENCARNACION Feb 24, 2017 13:11
[2017-02-24 14:08] VITALS: BP 101/54; RESP 18
[2017-02-24] MEDS: CEFTRIAXONE 1 GM/50 ML (PMX) 50 ML IVPB SCH (15:43)
[2017-02-24] MEDS: morphine 2 MG INJ IV PRN ×2 (15:53→20:53)
[2017-02-24 20:47] VITALS: BP 111/60; PULSE 91; RESP 20
--- NOTE | 2017-02-24 21:17 | CONS ---
Date/Time of Note Date/Time of Note DATE: 02/24/17 TIME: 21:09 Assessment/Plan Assessment/Plan Chief Complaint/Hosp Course 1. Cholelithiasis with hx choledocholithiasis s/p ercp/stent 3 weeks. Current ? mild pancreatitis -close monitoring, trend labs -ivf -GI -eventual lap suzette as outpt 2. UTI on abx 3. ?Sepsis 2nd above, improved -iv abx -ivf -close monitoring 4. Abdominal pain 2nd above -as above -pain control 5. Anemia: no femi bleed noted -monitor and transfuse prn 6. GERD: -antacids -diet/lifestyle optimization Thank you very much for consulting me in this patient's care, Problems: Consultation Date/Type/Reason Admit Date/Time 02/23/2017 Date of Consultation: Feb 24, 2017 Type of Consultation: General surgical Reason for Consultation Abdominal pain Dilated common bile duct Cholelithiasis UTI Sepsis 8 week Referring Provider: CAILIN ENCARNACION of Present Illness Libra Pires is a 36-year-old woman who is 8 weeks s/p ercp/stent 3 weeks ago for choledocholithiasis. She presented to ER c/o abd pain of several months duration. She recently left AMA after she was told the baby has to be taken out in order to perform the recommended cholecystectomy. MRCP was performed at outside hospital which we are attempting to obtain. She complains of RUQ pain intermittently irrespective of food. She also c/o GERD like symptom as well as intermittent nausea during her . She denies chest pain, SOB , fever or chills. US of gallbladder shows cholelithiasis with interval development of gallbladder wall thickening and common bile duct dilatation compared to the prior study of 06/15/2015. General surgery was called to evaluate. GERD Eyes: no complaints ENT: no complaints Respiratory: no complaints Cardiovascular: no complaints Gastrointestinal: pain (Right lower quadrant) Genitourinary: dysuria Musculoskeletal: no complaints Skin: no complaints Neurologic: no complaints Lymphatic: no complaints Psychological: nl mood/affect, no complaints Immunologic: no complaints Past Medical History Choledocholithiasis Cholelithiasis Pancreatitis Sepsis UTI Anemia GERD Hx transaminitis Past Surgical History ERCP Family History Significant Family History: no pertinent family hx Social History Alcohol Use: none Smoking Status: Never smoker Drug Use: none Exam/Review of Systems Vital Signs Vitals Vital Signs Date Time Temp Pulse Resp B/P Pulse Ox O2 Delivery O2 Flow Rate FiO2 02/24/17 20:47 99.5 91 20 111/60 100 Room Air Intake and Output 02/23/17 02/23/17 02/24/17 15:00 23:00 07:00 Intake Total 300 ml 410 ml Balance 300 ml 410 ml Exam Constitutional: alert, oriented Psych: anxiety Head: atraumatic, normocephalic Eyes: nl lids, nl sclera ENMT: mucosa pink and moist, nl nasal mucosa & septum Neck: non-tender, supple, No jvd Respiratory: normal air movement Cardiovascular: nl pulses, regular rate and rhythm, No edema Gastrointestinal: non-tender, other (negative hall's; rotund), soft Genitourinary - Female: nl external genitalia Musculoskeletal: nl extremities to inspection Extremities: normal pulses, No edema Neurological: nl mental status, nl speech, nl strength Skin: No rash or lesions Lymph: nl lymph nodes Results Result Diagram: 02/24/17 0457 02/24/17 0457 Results 24 hrs Laboratory Tests Test 02/24/17 04:57 White Blood Count 11.7 H Red Blood Count 3.76 L Hemoglobin 10.1 L Hematocrit 31.2 L Mean Corpuscular Volume 83.0 Mean Corpuscular Hemoglobin 26.9 L Mean Corpuscular Hemoglobin Concent 32.4 Red Cell Distribution Width 14.1 Platelet Count 266 Mean Platelet Volume 8.8 Neutrophils % 75.5 Lymphocytes % 14.9 L Monocytes % 7.5 Eosinophils % 1.6 Basophils % 0.2 Nucleated Red Blood Cells % 0.0 Neutrophils # 8.8 H Lymphocytes # 1.7 Monocytes # 0.9 Eosinophils # 0.2 Basophils # 0.0 Nucleated Red Blood Cells # 0.0 Sodium Level 136 Potassium Level 3.4 L Chloride Level 105 Carbon Dioxide Level 22 Anion Gap 12 Blood Urea Nitrogen 5 L Creatinine 0.50 Glucose Level 90 Hemoglobin A1c 5.8 Calcium Level 7.9 L Phosphorus Level 4.1 Magnesium Level 1.8 Lipase 141 Medications Medications Current Medications Ondansetron HCl (Zofran Inj) 4 mg Q6H PRN IV NAUSEA AND/OR VOMITING; Start at 16:00 Acetaminophen (Tylenol Tab) 650 mg Q6H PRN PO PAIN LEVEL 1-3 OR FEVER; Start 02/23/17 at 16:00 Acetaminophen/ Hydrocodone Bitart 1 tab 1 tab Q6H PRN PO MODERATE PAIN LEVEL 4- 6 Last administered on 02/24/17 02:44; Admin Dose 1 TAB; Start 02/23/17 at 16 :00 Ceftriaxone Sodium (Rocephin) 50 ml @ 100 mls/hr Q24H IVPB Last administered on 02/24/17 15:43; Admin Dose 100 MLS/HR; Start 02/23/17 at 16:00 Morphine Sulfate (morphine) 2 mg Q4H PRN IV PAIN Last administered on 20:53; Admin Dose 2 MG; Start 02/23/17 at 23:00 Phenol (Cepastat Lozenge) 1 lozenge Q1H PRN MT SORE THROAT Last administered on 02/24/17 11:08; Admin Dose 1 LOZENGE; Start 02/24/17 at 10:30 KATHY ABURTO MD Feb 24, 2017 21:17
[2017-02-25 02:00] VITALS: BP 97/56; RESP 20
[2017-02-25] MEDS: morphine 2 MG INJ IV PRN ×2 (04:02→20:53)
[2017-02-25 06:01] LABS: BASOPHILS % 0.2 % (0.0-2.0); EOSINOPHILS # 0.1 10^3/ul (0.0-0.5); EOSINOPHILS % 1.1 % (0.0-7.0); HEMATOCRIT 32.1 % (37.0-47.0); HEMOGLOBIN 10.2 g/dl (12.0-16.0); LYMPHOCYTES # 1.8 10^3/ul (0.8-2.9); LYMPHOCYTES % 14.3 % (15.0-51.0); MEAN CORPUSCULAR HEMOGLOBIN 26.8 pg (29.0-33.0); MEAN CORPUSCULAR HGB CONC 31.8 g/dl (32.0-37.0); MEAN CORPUSCULAR VOLUME 84.5 fl (82.0-101.0); MEAN PLATELET VOLUME 8.8 fl (7.4-10.4); MONOCYTE # 0.9 10^3/ul (0.3-0.9); MONOCYTES % 7.3 % (0.0-11.0); NEUTROPHIL # 9.5 10^3/ul (1.6-7.5); NEUTROPHILS % 76.5 % (39.0-77.0); PLATELET COUNT 268 10^3/UL (140-415); RED CELL DISTRIBUTION WIDTH 13.9 % (11.5-14.5); WHITE BLOOD COUNT 12.4 10^3/ul (4.8-10.8)
[2017-02-25] MEDS: CEPASTAT LOZENGE MT PRN (06:28)
[2017-02-25 06:57] LABS: ALBUMIN 3.5 g/dl (3.3-4.9); ALBUMIN/GLOBULIN RATIO 1.06; BILIRUBIN,INDIRECT 0.2 mg/dl (0-1.1); BILIRUBIN,TOTAL 0.2 mg/dl (0.2-1.3); CALCIUM 8.3 mg/dl (8.4-10.2); CREATININE 0.52 mg/dl (0.44-1.00); TOTAL PROTEIN 6.8 g/dl (6.1-8.1)
[2017-02-25 07:53] VITALS: BP 97/52; RESP 18
[2017-02-25 08:08] LABS: POTASSIUM 3.7 mmol/L (3.5-5.1)
[2017-02-25 14:43] VITALS: BP 112/72
--- NOTE | 2017-02-25 17:47 | PN ---
Date/Time of Note Date/Time of Note DATE: 02/25/17 TIME: 17:40 Assessment/Plan VTE Prophylaxis VTE Prophylaxis Intervention: SCD's Lines/Catheters IV C[facility]ter Type (from [facility]): Saline Lock Urinary Cath still in place: No Assessment/Plan Chief Complaint/Hosp Course 1. Right lower/mid quadrant abdominal pain likely secondary to cholecystitis but rule out acute appendicitis as pain is also in the right lower quadrant- pain has improved today but WBC has increased Follow-up on MRI of the abdomen Surgery consult with Dr. Rodriguez appreciated Have discontinued Rocephin and started Zosyn 2. Sepsis secondary to UTI versus acute cholecystitis versus acute appendicitis- white count has increased today despite having been on Rocephin UA does suggest a UTI but urine culture at this point shows contamination Follow-up on MRI of abdomen Continue Zosyn Follow-up on urine culture 3. Mild pancreatitis-resolved 4. Intrauterine gestation at 8 weeks 5. History of cholelithiasis with choledocholithiasis status post stent placement Plan is for cholecystectomy after patient delivers Ultrasound of the abdomen shows Cholelithiasis with gallbladder wall thickening with no evidence of pericholecystic fluid. Mildly dilated CBD with no significant interval change Prophylaxis: SCDs Problems: Subjective 24 Hr Interval Summary Gastrointestinal: pain Exam/Review of Systems Vital Signs Vitals Vital Signs Date Time Temp Pulse Resp B/P Pulse Ox O2 Delivery O2 Flow Rate FiO2 02/25/17 14:43 97.5 78 112/72 100 02/25/17 07:53 18 02/24/17 20:47 Room Air Intake and Output 02/24/17 02/24/17 02/25/17 15:00 23:00 07:00 Intake Total 1470 ml 800 ml Balance 1470 ml 800 ml Exam Constitutional: alert, oriented Respiratory: clear to auscultation Cardiovascular: regular rate and rhythm Gastrointestinal: soft, tender (Right lower quadrant), No distended Musculoskeletal: nl extremities to inspection Results Result Diagram: 02/25/17 0511 02/25/17 0511 Results 24 hrs Laboratory Tests Test 02/25/17 05:11 White Blood Count 12.4 H Red Blood Count 3.80 L Hemoglobin 10.2 L Hematocrit 32.1 L Mean Corpuscular Volume 84.5 Mean Corpuscular Hemoglobin 26.8 L Mean Corpuscular Hemoglobin Concent 31.8 L Red Cell Distribution Width 13.9 Platelet Count 268 Mean Platelet Volume 8.8 Neutrophils % 76.5 Lymphocytes % 14.3 L Monocytes % 7.3 Eosinophils % 1.1 Basophils % 0.2 Nucleated Red Blood Cells % 0.0 Neutrophils # 9.5 H Lymphocytes # 1.8 Monocytes # 0.9 Eosinophils # 0.1 Basophils # 0.0 Nucleated Red Blood Cells # 0.0 Sodium Level 137 Potassium Level 3.7 Chloride Level 105 Carbon Dioxide Level 23 Anion Gap 13 Blood Urea Nitrogen 4 L Creatinine 0.52 Glucose Level 98 Calcium Level 8.3 L Total Bilirubin 0.2 Direct Bilirubin 0.00 Indirect Bilirubin 0.2 Aspartate Amino Transf (AST/SGOT) 14 L Alanine Aminotransferase (ALT/SGPT) 28 Alkaline Phosphatase 89 Total Protein 6.8 # Albumin 3.5 Globulin 3.30 H Albumin/Globulin Ratio 1.06 Lipase 92 Medications Medications Current Medications Ondansetron HCl (Zofran Inj) 4 mg Q6H PRN IV NAUSEA AND/OR VOMITING; Start at 16:00 Acetaminophen (Tylenol Tab) 650 mg Q6H PRN PO PAIN LEVEL 1-3 OR FEVER; Start 02/23/17 at 16:00 Acetaminophen/ Hydrocodone Bitart ([place] (5/325)) 1 tab Q6H PRN PO MODERATE PAIN LEVEL 4-6 Last administered on 02/24/17 02:44; Admin Dose 1 TAB; Start 02/23/17 at 16:00 Morphine Sulfate (morphine) 2 mg Q4H PRN IV PAIN Last administered on 04:02; Admin Dose 2 MG; Start 02/23/17 at 23:00 Phenol 1 lozenge 1 lozenge Q1H PRN MT SORE THROAT Last administered on 06:28; Admin Dose 1 LOZENGE; Start 02/24/17 at 10:30 Piperacillin Sod/ Tazobactam Sod (Zosyn 3.375gm/ 100 ml (Pmx)) 100 ml @ 200 mls /hr Q6 IVPB ; Start 02/25/17 at 18:00 CAILIN ENCARNACION Feb 25, 2017 17:47
[2017-02-25] MEDS: PIPER-TAZO 3.375 GM IV (PMX) 100 ML IVPB SCH (18:28)
[2017-02-25 20:16] VITALS: BP 129/59; RESP 20
--- NOTE | 2017-02-25 23:31 | PN ---
Date/Time of Note Date/Time of Note DATE: 02/25/17 TIME: 23:29 Assessment/Plan Lines/Catheters IV Catheter Type (from [facility]): Saline Lock [facility] in Place (from [facility]): No Assessment/Plan Chief Complaint/Hosp Course 1. Cholelithiasis with hx choledocholithiasis s/p ercp/stent 3 weeks. Current ? mild pancreatitis (improved) and mild cholecystitis -close monitoring, trend labs -ivf -GI -eventual lap suzette as outpt after delivery -MRI being performed to rule out other etiologies 2. UTI on abx 3. ?Sepsis 2nd above, improved -iv abx -ivf -close monitoring 4. Abdominal pain 2nd above -as above -pain control 5. Anemia: no femi bleed noted -monitor and transfuse prn 6. GERD: -antacids -diet/lifestyle optimization Thank you, Problems: Subjective 24 Hr Interval Summary Pain improved compared to yesterday. No nausea vomiting. No fevers or chills. No chest pain. No shortness of breath. No cough. No seizure. No blood per mouth or rectum. No dysuria. No skin urine stool or eyeball color change. Bowel function. WBC slightly elevated more than yesterday. Exam/Review of Systems Vital Signs Vitals Vital Signs Date Time Temp Pulse Resp B/P Pulse Ox O2 Delivery O2 Flow Rate FiO2 02/25/17 20:16 98.3 83 20 129/59 99 02/24/17 20:47 Room Air Intake and Output 02/24/17 02/24/17 02/25/17 15:00 23:00 07:00 Intake Total 1470 ml 800 ml Balance 1470 ml 800 ml Exam Free Text/Dictation Constitutional: alert, oriented Psych: anxiety Head: atraumatic, normocephalic Eyes: nl lids, nl sclera ENMT: mucosa pink and moist, nl nasal mucosa & septum Neck: non-tender, supple, No jvd Respiratory: normal air movement Cardiovascular: nl pulses, regular rate and rhythm, No edema Gastrointestinal: Minimal-tender right upper quadrant, other (negative hall's ; rotund), soft Genitourinary - Female: nl external genitalia Musculoskeletal: nl extremities to inspection Extremities: normal pulses, No edema Neurological: nl mental status, nl speech, nl strength Skin: No rash or lesions Lymph: nl lymph nodes Results Result Diagram: 02/25/17 0511 02/25/17 0511 KATHY ABURTO MD Feb 25, 2017 23:31
[2017-02-26] MEDS: PIPER-TAZO 3.375 GM IV (PMX) 100 ML IVPB SCH ×2 (00:05→06:01)
[2017-02-26 01:17] VITALS: BP 106/54; RESP 20
[2017-02-26] MEDS: morphine 2 MG INJ IV PRN ×4 (01:24→19:05)
[2017-02-26 06:22] LABS: BASOPHILS % 0.3 % (0.0-2.0); EOSINOPHILS # 0.3 10^3/ul (0.0-0.5); EOSINOPHILS % 1.9 % (0.0-7.0); HEMATOCRIT 31.9 % (37.0-47.0); HEMOGLOBIN 10.1 g/dl (12.0-16.0); LYMPHOCYTES # 2.1 10^3/ul (0.8-2.9); LYMPHOCYTES % 16.1 % (15.0-51.0); MEAN CORPUSCULAR HEMOGLOBIN 26.2 pg (29.0-33.0); MEAN CORPUSCULAR HGB CONC 31.7 g/dl (32.0-37.0); MEAN CORPUSCULAR VOLUME 82.9 fl (82.0-101.0); MEAN PLATELET VOLUME 9.1 fl (7.4-10.4); MONOCYTE # 0.7 10^3/ul (0.3-0.9); MONOCYTES % 5.5 % (0.0-11.0); NEUTROPHIL # 9.9 10^3/ul (1.6-7.5); NEUTROPHILS % 75.7 % (39.0-77.0); PLATELET COUNT 307 10^3/UL (140-415); RED BLOOD COUNT 3.85 10^6/ul (4.20-5.40)
--- NOTE | 2017-02-26 06:58 | RADRPT ---
PROCEDURE: MRI Abdomen without contrast CLINICAL INDICATION: Right lower quadrant abdominal pain. TECHNIQUE: Routine MRI of the abdomen is performed without the administration of intravenous contr ast. COMPARISON: Ultrasound, 02/23/2017. FINDINGS: There is a gravid uterus with visualization of intrauterine gestational sac and pole. No abnormal bowel wall thickening or dilatation. Appendix is normal. There is trace perihepatic fluid and inflammation identified in the ipsilateral retroperitoneum and right paracolic gutter. There are multiple stones with gallbladder wall thickening. Biliary system is nondilated. Pancreas, adrenal glands, and spleen are unremarkable. No lymphadenopathy. No loculated fluid collection. IMPRESSION: Cholelithiasis with gallbladder wall thickening. Recommend clinical correlation for cholecystitis. Trace perihepatic fluid and inflammation/fluid in the right retroperitoneum of indeterminate etiolog y. No radiologic evidence of appendicitis. RPTAT: EE .Cruz Cifuentes MD, Date Time Electronically viewed and signed by .Cruz Cifuentes MD, MD on 02/26/2017 07:03 .C/
[2017-02-26 07:25] VITALS: BP 95/53; RESP 16
[2017-02-26 07:36] LABS: CALCIUM 8.7 mg/dl (8.4-10.2); CREATININE 0.58 mg/dl (0.44-1.00)
--- NOTE | 2017-02-26 12:45 | PN ---
Date/Time of Note Date/Time of Note DATE: 02/26/17 TIME: 12:17 Assessment/Plan Lines/Catheters IV Catheter Type (from [facility]rs): Saline Lock [facility] in Place (from [facility]): No Assessment/Plan Assessment/Plan 1. Cholelithiasis with hx choledocholithiasis s/p ercp/stent 3 weeks. Current ? mild pancreatitis (lipase normalized) and mild cholecystitis: MRI noted; normal lft's -close monitoring, trend labs -ivf -GI -eventual lap suzette as outpt after delivery 2. UTI on abx: patient reports passing stone -continue abx -frequent bladder emptying 3. ?Sepsis 2nd above, Leukocytosis worsening -iv abx -ivf -close monitoring 4. Abdominal pain 2nd above: persistent -as above -pain control 5. Anemia: no femi bleed noted -monitor and transfuse prn 6. GERD: -antacids -diet/lifestyle optimization Thank you. Patient seen and examined in collaboration with Dr. Aramis Rodriguez. Subjective 24 Hr Interval Summary Abdominal pain persistent- predominantly in RUQ. LFT's lipase normalized but increasing WBC. Reports passing a stone while urinating. No fevers, chills, sob , congested cough, n/v/d/dysuria, friend, dizziness, cp, palpitations. Exam/Review of Systems Vital Signs Vitals Vital Signs Date Time Temp Pulse Resp B/P Pulse Ox O2 Delivery O2 Flow Rate FiO2 02/26/17 07:25 98.1 65 16 95/53 99 02/24/17 20:47 Room Air Intake and Output 02/25/17 02/25/17 02/26/17 15:00 23:00 07:00 Intake Total 1420 ml 200 ml Output Total 500 ml Balance 1420 ml -300 ml Exam Free Text/Dictation Constitutional: alert, oriented Psych: anxiety Head: atraumatic, normocephalic Eyes: nl lids, nl sclera ENMT: mucosa pink and moist, nl nasal mucosa & septum Neck: non-tender, supple, No jvd Respiratory: normal air movement Cardiovascular: nl pulses, regular rate and rhythm, No edema Gastrointestinal: Minimal-tender right upper quadrant, other (negative hall's ; rotund), soft Genitourinary - Female: nl external genitalia Musculoskeletal: nl extremities to inspection Extremities: normal pulses, No edema Neurological: nl mental status, nl speech, nl strength Skin: No rash or lesions Lymph: nl lymph nodes Results Result Diagram: 02/26/17 0545 02/26/17 0545 MATEO YARBROUGH NP Feb 26, 2017 12:45
[2017-02-26] MEDS ORDERED: PIPER-TAZO 3.375 GM IV (PMX) 100 ML IVPB SCH (13:00)
[2017-02-26 14:10] VITALS: BP 110/65; RESP 18
--- NOTE | 2017-02-26 14:12 | PN ---
Date/Time of Note Date/Time of Note DATE: 02/26/17 TIME: 14:11 Assessment/Plan VTE Prophylaxis VTE Prophylaxis Intervention: heparin Lines/Catheters IV Catheter Type (from [facility]): Saline Lock Urinary Cath still in place: No Assessment/Plan Chief Complaint/Hosp Course 36 yo female currently who presnets with cholecystitis and UTI - continue abx course - No urgent need for cholecystectomy: conservative managment - Can likely discharge home tomorrow with outpatient follow up Problems: Subjective 24 Hr Interval Summary Free Text/Dictation Dyruia is resolved, said she passed a stone Still wtih mild RUQ pain, tolerating diet normally Exam/Review of Systems Vital Signs Vitals Vital Signs Date Time Temp Pulse Resp B/P Pulse Ox O2 Delivery O2 Flow Rate FiO2 02/26/17 07:25 98.1 65 16 95/53 99 02/24/17 20:47 Room Air Intake and Output 02/25/17 02/25/17 02/26/17 15:00 23:00 07:00 Intake Total 1420 ml 200 ml Output Total 500 ml Balance 1420 ml -300 ml Exam mild RUQ tenderness, mild voluntary guarding, no rebound Constitutional: alert, oriented, well developed Psych: nl mood/affect, no complaints Head: atraumatic, normocephalic Eyes: EOMI, PERRL, nl conjunctiva, nl lids, nl sclera ENMT: nl external ears & nose, nl lips & teeth, nl nasal mucosa & septum Neck: non-tender, supple Respiratory: clear to auscultation, normal air movement Cardiovascular: nl pulses, regular rate and rhythm Gastrointestinal: nl liver, spleen, non-tender, soft Musculoskeletal: nl extremities to inspection, nl gait and stance Extremities: normal pulses Neurological: RADIOGRAPHER ANGIOGRAM II-XII intact, nl mental status, nl speech, nl strength Skin: nl turgor, No rash or lesions Lymph: nl lymph nodes Results Result Diagram: 02/26/17 0545 02/26/17 0545 Results 24 hrs Laboratory Tests Test 02/26/17 05:45 White Blood Count 13.0 H Red Blood Count 3.85 L Hemoglobin 10.1 L Hematocrit 31.9 L Mean Corpuscular Volume 82.9 Mean Corpuscular Hemoglobin 26.2 L Mean Corpuscular Hemoglobin Concent 31.7 L Red Cell Distribution Width 14.0 Platelet Count 307 Mean Platelet Volume 9.1 Neutrophils % 75.7 Lymphocytes % 16.1 Monocytes % 5.5 Eosinophils % 1.9 Basophils % 0.3 Nucleated Red Blood Cells % 0.0 Neutrophils # 9.9 H Lymphocytes # 2.1 Monocytes # 0.7 Eosinophils # 0.3 Basophils # 0.0 Nucleated Red Blood Cells # 0.0 Sodium Level 138 Potassium Level 4.0 Chloride Level 104 Carbon Dioxide Level 24 Anion Gap 14 Blood Urea Nitrogen 10 Creatinine 0.58 Glucose Level 91 Calcium Level 8.7 Medications Medications Current Medications Ondansetron HCl (Zofran Inj) 4 mg Q6H PRN IV NAUSEA AND/OR VOMITING; Start at 16:00 Acetaminophen (Tylenol Tab) 650 mg Q6H PRN PO PAIN LEVEL 1-3 OR FEVER; Start 02/23/17 at 16:00 Acetaminophen/ Hydrocodone Bitart ([place] (5/325)) 1 tab Q6H PRN PO MODERATE PAIN LEVEL 4-6 Last administered on 02/24/17 02:44; Admin Dose 1 TAB; Start 02/23/17 at 16:00 Morphine Sulfate (morphine) 2 mg Q4H PRN IV PAIN Last administered on 13:58; Admin Dose 2 MG; Start 02/23/17 at 23:00 Phenol 1 lozenge 1 lozenge Q1H PRN MT SORE THROAT Last administered on 06:28; Admin Dose 1 LOZENGE; Start 02/24/17 at 10:30 Piperacillin Sod/ Tazobactam Sod (Zosyn 3.375gm/ 100 ml (Pmx)) 100 ml @ 200 mls /hr Q6 IVPB Last administered on 02/26/17 13:58; Admin Dose 200 MLS/HR; Start 02/26/17 at 13:00 BELLO NAGEL MD Feb 26, 2017 14:12
[2017-02-26] MEDS: AMPICILLIN/SULB 3 GM/NS (PMX) 100 ML IVPB SCH (18:25)
[2017-02-26 19:04] VITALS: BP 124/74
[2017-02-26] MEDS: SOD CHLORIDE 0.9% 1,000 ML IV SCH (20:22)
[2017-02-26 20:26] VITALS: BP 119/66; RESP 18
[2017-02-26] MEDS ORDERED: morphine 2 MG INJ IV ONE (20:30)
[2017-02-27] MEDS: AMPICILLIN/SULB 3 GM/NS (PMX) 100 ML IVPB SCH ×3 (00:15→12:03)
[2017-02-27 02:37] VITALS: BP 108/61; RESP 18
[2017-02-27 05:27] LABS: BASOPHILS % 0.1 % (0.0-2.0); EOSINOPHILS # 0.2 10^3/ul (0.0-0.5); EOSINOPHILS % 1.9 % (0.0-7.0); HEMOGLOBIN 9.9 g/dl (12.0-16.0); LYMPHOCYTES # 2.2 10^3/ul (0.8-2.9); LYMPHOCYTES % 24.3 % (15.0-51.0); MEAN CORPUSCULAR HEMOGLOBIN 26.1 pg (29.0-33.0); MEAN CORPUSCULAR HGB CONC 31.9 g/dl (32.0-37.0); MEAN CORPUSCULAR VOLUME 81.8 fl (82.0-101.0); MEAN PLATELET VOLUME 8.6 fl (7.4-10.4); MONOCYTE # 0.5 10^3/ul (0.3-0.9); MONOCYTES % 5.9 % (0.0-11.0); NEUTROPHIL # 6.1 10^3/ul (1.6-7.5); NEUTROPHILS % 67.5 % (39.0-77.0); PLATELET COUNT 290 10^3/UL (140-415); RED BLOOD COUNT 3.79 10^6/ul (4.20-5.40); RED CELL DISTRIBUTION WIDTH 13.5 % (11.5-14.5)
[2017-02-27] MEDS: SOD CHLORIDE 0.9% 1,000 ML IV SCH (05:32)
[2017-02-27 06:50] LABS: ALBUMIN 3.2 g/dl (3.3-4.9); ALBUMIN/GLOBULIN RATIO 0.84; BILIRUBIN,INDIRECT 0.3 mg/dl (0-1.1); BILIRUBIN,TOTAL 0.3 mg/dl (0.2-1.3); CALCIUM 8.4 mg/dl (8.4-10.2); CREATININE 0.47 mg/dl (0.44-1.00); POTASSIUM 3.5 mmol/L (3.5-5.1)
[2017-02-27 08:06] VITALS: BP 120/59; RESP 18
[2017-02-27 14:26] VITALS: BP 125/68; RESP 18
--- NOTE | 2017-02-27 15:58 | PDOCDIS ---
Discharge Instructions DIAGNOSIS Discharge Diagnosis Cholecystitis CONDITION Patient Condition: Good HOME CARE INSTRUCTIONS: Special Diet: npo FOLLOW UP/APPOINTMENTS Follow-up Plan Follow up in clinic with Dr Rodriguez to consider eventual surgery for your gall bladder Return to the hospital if you feel any worsening of your abdominal pain or if you develop fever or vomiting You should avoid eating fatty foods as these may cause pain BELLO NAGEL MD Feb 27, 2017 15:58
--- NOTE | 2017-02-27 16:00 | DS ---
Date/Time of Note Date/Time of Note DATE: 02/27/17 TIME: 15:58 Discharge Summary Admission/Discharge Info Admit Date/Time Feb 23, 2017 at 11:45 Discharge Date/Time Discharge Diagnosis Cholecystitis Patient Condition: Good Hx of Present Illness Patient is a 36-year-old female with a history of cholelithiasis with choledocholithiasis: s/p ERCP with stent and sphincterotomy approximately 3 weeks ago. Patient is 8 weeks and during last hospitalization it was decided that she would have a laparoscopic cholecystectomy after she delivered. Patient presents with 1 week of dysuria and urgency as well as 1 day of midepigastric pain. Patient denies any nausea vomiting, in the ED UA suggested a UTI, patient denies any flank pain. Hospital Course 36 yo female currently who presnets with cholecystitis and UTI The patient underwent GB ultrasound which was suggestive of cholecystitis. MRI of her abdomen confirmed this diagnosis. She was treated with IV antibiotics. Her dysuria improved as did her RUQ pain. She was seen by general surgery who recommended medical management and consideration of cholecystectomy following delivery. Her symptoms entirely resolved, she was afebrile and tolerating PO normally. She was discharged with follow up in generaly surgery clinic Home Meds Active Scripts Amoxicillin/Potassium Clav (Amox-Clav 875-125 mg Tablet) 875-125 mg Tab, 1 TAB PO BID, #20 TAB Prov:EDVIN RODGERS MD 02/01/17 Reported Medications Folic Acid (Folic Acid) 0.8 Mg Capsule, 0.8 MG PO DAILY, CAP 01/25/16 Ferrous Sulfate (Iron) 325 Mg Capsule.er, 325 MG PO DAILY, CAP 01/25/16 Vit-Iron Fumarate-FA ( Vitamin Tablet) 1 Each Tablet, 1 TAB PO DAILY, TAB 12/20/15 Follow-up Plan Follow up in clinic with Dr Rodriguez to consider eventual surgery for your gall bladder Return to the hospital if you feel any worsening of your abdominal pain or if you develop fever or vomiting You should avoid eating fatty foods as these may cause pain Primary Care Provider Care Physician No Primary Pending Labs Laboratory Tests Test 02/26/17 20:37 02/27/17 05:08 Lipase 211U/L (23-300) White Blood Count 9.010^3/ul (4.8-10.8) Red Blood Count 3.7910^6/ul (4.20-5.40) Hemoglobin 9.9g/dl (12.0-16.0) Hematocrit 31.0% (37.0-47.0) Mean Corpuscular Volume 81.8fl (82.0-101.0) Mean Corpuscular Hemoglobin 26.1pg (29.0-33.0) Mean Corpuscular Hemoglobin Concent 31.9g/dl (32.0-37.0) Red Cell Distribution Width 13.5% (11.5-14.5) Platelet Count 56961^3/UL (140-415) Mean Platelet Volume 8.6fl (7.4-10.4) Neutrophils % 67.5% (39.0-77.0) Lymphocytes % 24.3% (15.0-51.0) Monocytes % 5.9% (0.0-11.0) Eosinophils % 1.9% (0.0-7.0) Basophils % 0.1% (0.0-2.0) Nucleated Red Blood Cells % 0.0/100WBC (0.0-0.0) Neutrophils # 6.110^3/ul (1.6-7.5) Lymphocytes # 2.210^3/ul (0.8-2.9) Monocytes # 0.510^3/ul (0.3-0.9) Eosinophils # 0.210^3/ul (0.0-0.5) Basophils # 0.010^3/ul (0.0-0.1) Nucleated Red Blood Cells # 0.010^3/ul (0.0-0.0) Sodium Level 138mmol/L (135-144) Potassium Level 3.5mmol/L (3.5-5.1) Chloride Level 106mmol/L (97-110) Carbon Dioxide Level 25mmol/L (21-31) Anion Gap 11 (8-16) Blood Urea Nitrogen 6mg/dl (7-20) Creatinine 0.47mg/dl (0.44-1.00) Glucose Level 83mg/dl (70-220) Calcium Level 8.4mg/dl (8.4-10.2) Total Bilirubin 0.3mg/dl (0.2-1.3) Direct Bilirubin 0.00mg/dl (0.00-0.20) Indirect Bilirubin 0.3mg/dl (0-1.1) Aspartate Amino Transf (AST/SGOT) 95IU/L (15-46) Alanine Aminotransferase (ALT/SGPT) 83IU/L (13-69) Alkaline Phosphatase 253IU/L (42-121) Total Protein 7.0g/dl (6.1-8.1) Albumin 3.2g/dl (3.3-4.9) Globulin 3.80g/dl (1.3-3.2) Albumin/Globulin Ratio 0.84 BELLO NAGEL MD Feb 27, 2017 16:00
== END 2017-02-27 17:40 | disposition home or self-care (01) | DRG 781 ==
LOC: FTE 09:55 → MS2 11:45
PROVIDERS: ADMIT Internal Medicine; ATTEND Internal Medicine
DX: O99.611 Diseases of the digestive system complicating pregnancy, first trimester (principal); K85.90 Acute pancreatitis without necrosis or infection, unspecified; K80.60 Calculus of gallbladder and bile duct with cholecystitis, unspecified, without obstruction; O23.41 Unspecified infection of urinary tract in pregnancy, first trimester; K21.9 Gastro-esophageal reflux disease without esophagitis; Z3A.08 8 weeks gestation of pregnancy; O99.011 Anemia complicating pregnancy, first trimester
CPT/HCPCS: 36415; 74181; 76705; 76801; 80048; 80053; 81001; 83036; 83690; 83735; 84100; 84702; 85025; 87070; 87086; 96374; J0295; J0696; J2270; J2543; J7030

== ENCOUNTER 2017-08-31 01:50 | Inpatient (IN) | END 2017-09-12 16:50 | disposition home or self-care (01) | DRG 782 ==

== ENCOUNTER 2017-09-19 19:15 | Inpatient (IN) | END 2017-09-22 14:10 | disposition home or self-care (01) | DRG 775 ==

== ENCOUNTER 2018-01-25 20:32 | Inpatient (IN) | END 2018-01-27 14:28 | disposition home or self-care (01) | DRG 446 ==